=== PATIENT | male | born 1945 | race Caucasian/White ===

== ENCOUNTER 2018-09-15 10:36 | Inpatient (IN) ==
[2018-09-15] MEDS ORDERED: MethylPREDNISolone Sod Succinate Inj 40 MG/ML Vial IV.PUSH ONE (10:47)
[2018-09-15 11:12] LABS: Baso # (Auto) 0.1 th/mm3 (0.0-0.2); Baso % (Auto) 0.9 % (0.0-2.0); Eos % (Auto) 0.4 % (0.0-4.0); Hematocrit 38.7 % (39.0-51.0); Hemoglobin 12.1 gm/dL (13.0-17.0); Lymph # (Auto) 0.8 th/mm3 (1.0-4.8); Mean Corpuscular HGB Conc 31.4 % (32.0-36.0); Mean Corpuscular Hemoglobin 28.6 pg (27.0-34.0); Mean Corpuscular Volume 91.2 fL (80.0-100.0); Mono # (Auto) 0.9 th/mm3 (0.0-0.9); Mono % (Auto) 8.1 % (0.0-8.0); Neut # (Auto) 9.4 th/mm3 (1.8-7.7); Neut % (Auto) 83.6 % (16.0-70.0); Platelet Count 199 th/mm3 (150-450); Red Blood Count 4.25 mil/mm3 (4.50-5.90); White Blood Count 11.2 th/mm3 (4.0-11.0)
[2018-09-15 11:28] LABS: Activated Partial Thrombo Time 27.5 sec (23.4-31.7); INR 1.2 Ratio
[2018-09-15 11:31] LABS: Prothrombin Time 11.9 sec (9.8-11.6)
[2018-09-15 11:35] LABS: Alanine Aminotransferase 15 U/L (12-78); Albumin 3.2 g/dL (3.4-5.0); Alkaline Phosphatase 104 U/L (45-117); Anion Gap 4 meq/L (5-15); Blood Urea Nitrogen 13 mg/dL (7-18); Calcium 8.8 mg/dL (8.5-10.1); Carbon Dioxide 25.6 meq/L (21.0-32.0); Chloride 111 meq/L (98-107); Glomerular Filtration Rate 61 mL/min (>89); Magnesium 1.9 mg/dL (1.5-2.5); Sodium 141 meq/L (136-145); Total Protein 7.6 g/dL (6.4-8.2); Troponin I 0.03 ng/mL (0.02-0.05)
[2018-09-15 11:38] LABS: Glucose,Random 45 mg/dL (74-106)
[2018-09-15] MEDS ORDERED: Etomidate Inj 40 MG/20 ML Vial IV.PUSH ONE (11:39)
--- NOTE | 2018-09-15 11:40 | XR ---
EXAM DATE: 09/15/2018 11:29 AM EST AGE/SEX: 73 years / Male INDICATIONS: Dyspnea CLINICAL DATA: This is the patient's initial encounter. Patient reports that signs and symptoms have been present for 1 day and indicates a pain score of Nonresponsive. MEDICAL/SURGICAL HISTORY: Cardiovascular disease. CABG. COMPARISON: No prior exams available for comparison. FINDINGS: 2 portable AP views of the chest demonstrate cardiac silhouette size at the upper limits for normal w ith calcification of the aorta. Patient is post median sternotomy. There is patchy airspace consolida tion in the right midlung zone and the left mid to lower lung zone. No pleural effusion or pneumothor ax is identified. The bones and soft tissues demonstrate no acute abnormality. CONCLUSION: 1. There is nonspecific bilateral patchy airspace consolidation of uncertain chronicity. 2. Cardiac silhouette size is at the upper limits for normal. Electronically signed by: Haider Wood MD 09/15/2018 11:39 AM EST
[2018-09-15] MEDS ORDERED: Sod Chloride 0.9% Inj 1,000 ML IV.SIG SCH ×2 (11:45)
[2018-09-15] MEDS ORDERED: Sod Chloride 0.9% Inj 700 ML IV.SIG SCH (11:45)
[2018-09-15] MEDS: Propofol 1000 mg/100 ml Inj 1,000 MG/100 ML BOTTLE IV.CONT PRN ×3 (12:04→20:12)
[2018-09-15 12:20] LABS: ABG PCO2 38 mmHg (38-42); ABG PO2 69 mmHg (61-120)
--- NOTE | 2018-09-15 12:44 | ED ---
HPI General Chief Complaint: Shortness of Breath/Dyspnea Stated Complaint: Respitory/Pysch EVAL/DBPD Time Seen by Provider: 09/15/18 10:47 Source: patient Mode of arrival: ambulatory Limitations: no limitations History of Present Illness 73 yo M c/o shortness of breath. pt arrives by EMS after family called from home. hx limited 2/2 non-compliance with hpi and PE. evidently PD was called and PD placed pt under BA due to unwillingness to proceed w EMS transfer to ED. here pt states, "I can't breathe." O2 sats in the 60s per EMS en route. With NRB O2 improved to high 90s. Related Data Home Medications Medication Instructions Recorded Confirmed alfuzosin 10 mg PO DAILY 09/15/18 09/15/18 aspirin 325 mg PO DAILY 09/15/18 09/15/18 atorvastatin [Lipitor] 40 mg PO HS 09/15/18 09/15/18 benzonatate [Tessalon Perles] 200 mg PO Q8HR PRN 09/15/18 09/15/18 carvedilol [Coreg] 12.5 mg PO BID 09/15/18 09/15/18 cholecalciferol (vitamin D3) 2,000 unit PO DAILY 09/15/18 09/15/18 [Vitamin D3] insulin NPH and regular human 1 sliding scale dose SUBCUT UD 09/15/18 09/15/18 [Novolin 70/30 U-100 Insulin] isosorbide mononitrate 30 mg PO DAILY 09/15/18 09/15/18 lisinopril 2.5 mg PO DAILY 09/15/18 09/15/18 Allergies Allergy/AdvReac Type Severity Reaction Status Date / Time No Known Allergies Allergy Uncoded 01/28/15 04:04 Review of Systems ROS Unobtainable ROS Unobtainable: unobtainable due to mental condition and unobtainable due to mental status PMFSH Medical History Medical History Chest pain (Acute) Diabetes (Acute) Myocardial infarction (Acute) Surgical History Surgical History Hx of cardiac cath (Acute) S/P CABG x 2 (Acute) Social History Social History Substance History: Unable to Obtain Smoking Status: Unknown if ever smoked How Often Do You Have a Drink Containing Alcohol: Unable to Obtain Recent Travel in [facility] within the Last 8 Weeks: No Recent Out of Country Travel within the Last 8 Weeks: No Immunization History Tetanus Immunization: Unsure Exam Narrative Exam Narrative: GENERAL: 73 yo M severe distress 2/2 dyspnea SKIN: Focused skin assessment warm/dry. HEAD: Atraumatic. Normocephalic. EYES: Pupils equal and round. No scleral icterus. No injection or drainage. ENT: No nasal bleeding or discharge. Mucous membranes pink and moist. NECK: Trachea midline. No JVD. CARDIOVASCULAR: Regular rate and rhythm. No murmur appreciated. RESPIRATORY: Course breath sounds bilaterally. Rate approx 30 bpm. Speaks two to three word sentences. GASTROINTESTINAL: Abdomen soft, non-tender, nondistended. Hepatic and splenic margins not palpable. MUSCULOSKELETAL: Minimal edema bilateral lower extremities. NEUROLOGICAL: No focal deficits. Agitated. PSYCHIATRIC: Agitated. Unable to assess otherwise 2/2 agitation. Procedures Intubation Time Out Performed: No Sedative: etomidate Mg Given: 20 Paralytic: rocuronium Mg Given: 50 Laryngoscope: fiber optic video scope ET Tube Size: 8 ET Tube Uncuffed: No Tube Secured Depth (cm): 23 Tube Secured Location: lips Tube Placement Confirmation: visualized tube passing through cords, equal breath sounds bilaterally and no breath sounds over epigastrium Patient Tolerated Procedure: well Intubation Complications: none Course Initial Documented Vital Signs Pulse Rate 77 09/15/18 10:40 Respiratory Rate 37 H 09/15/18 10:40 Pulse Oximetry 93 L 09/15/18 10:40 Last Documented Vital Signs Temperature 99.0 F 09/15/18 13:31 Pulse Rate 75 09/15/18 13:31 Respiratory Rate 26 H 09/15/18 14:32 Blood Pressure 173/110 H 09/15/18 13:31 Pulse Oximetry 99 09/15/18 14:32 Critical Care Time Critical Care Time: Yes Total Critical Care Time: 40 Attestation: Aggregate critical care time was 40 minutes. Time to perform other separately billable procedures was not included in the critical care time. My time did not include minutes spent treating any other patients simultaneously or on activities that did not directly contribute to the patient's treatment. The services I provided to this patient were to treat and/or prevent clinically significant deterioration that could result in: Cardiopulmonary arrest, anoxic organ injury I provided critical care services requiring my management, as noted below: Chart data review, documentation time, medication orders and management, vital sign assessments/reviewing monitor data, ordering and reviewing lab tests, ordering and interpreting/reviewing x-rays and diagnostic studies, care of the patient and discussion of the patient with the admitting physicians. Medical Decision Making MDM Narrative Medical decision making narrative: BIPAP started upon arrival Increasing agitation and more frequent complaints of "I can't breath." ABG 7. BE -7 NRB tried with no improvement D50 given Pt intubated with O2 sats at 83 with 100% FIO2 improved to 94 after about 5 minutes. Xray shows pulmonary edema, 40mg IV Lasix ordered. 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 Medical Screen Exam Complete: Yes Emergency Medical Condition: Yes Lab Data Result diagrams: 09/15/18 10:50 09/15/18 10:50 Lab Results 09/15/18 09/15/18 09/15/18 Range/Units 10:50 10:50 10:50 WBC 11.2 H (4.0-11.0) th/mm3 RBC 4.25 L (4.50-5.90) mil/mm3 Hgb 12.1 L (13.0-17.0) gm/dL Hct 38.7 L (39.0-51.0) % MCV 91.2 (80.0-100.0) fL MCH 28.6 (27.0-34.0) pg MCHC 31.4 L (32.0-36.0) % RDW 19.0 H (11.6-17.2) % Plt Count 199 (150-450) th/mm3 MPV 9.0 (7.0-11.0) fL Neut % (Auto) 83.6 H (16.0-70.0) % Lymph % (Auto) 7.0 L (9.0-44.0) % [place] % (Auto) 8.1 H (0.0-8.0) % Eos % (Auto) 0.4 (0.0-4.0) % Baso % (Auto) 0.9 (0.0-2.0) % Neut # (Auto) 9.4 H (1.8-7.7) th/mm3 Lymph # (Auto) 0.8 L (1.0-4.8) th/mm3 [place] # (Auto) 0.9 (0.0-0.9) th/mm3 Eos # (Auto) 0.0 (0.0-0.4) th/mm3 Baso # (Auto) 0.1 (0.0-0.2) th/mm3 WBC Differential . Differential Comment Auto diff final PT 11.9 H (9.8-11.6) sec INR 1.2 Ratio APTT 27.5 (23.4-31.7) sec Puncture Site Patient Temperature O2 Saturation (90-100) % ABG pH (7.380-7.420) ABG pCO2 (38-42) mmHg ABG pO2 (61-120) mmHg ABG HCO3 (22-26) mmol/L ABG O2 Content (12.0-20.0) Vol % ABG Base Excess (-2-2) mmol/L ABG Methemoglobin (0-2) % Leoncio Test Hemoglobin (12.0-16.0) G/DL Carboxyhemoglobin (0-4) % O2 Delivery Device Vent Setting Inspired O2 % Critical Value Sodium 141 (136-145) meq/L Potassium (3.5-5.1) meq/L Chloride 111 H (98-107) meq/L Carbon Dioxide 25.6 (21.0-32.0) meq/L Anion Gap 4 L (5-15) meq/L BUN 13 (7-18) mg/dL Creatinine 1.18 (0.60-1.30) mg/dL Estimated GFR 61 L (>89) mL/min POC Glucose (68-110) mg/dl Random Glucose 45 L* (74-106) mg/dL Lactic Acid (0.4-2.0) mmol/L Calcium 8.8 (8.5-10.1) mg/dL Magnesium 1.9 (1.5-2.5) mg/dL Total Bilirubin 1.1 H (0.2-1.0) mg/dL AST (15-37) U/L ALT 15 (12-78) U/L Alkaline Phosphatase 104 (45-117) U/L Troponin I 0.03 (0.02-0.05) ng/mL B-Natriuretic Peptide (0-100) pg/mL Total Protein 7.6 (6.4-8.2) g/dL Albumin 3.2 L (3.4-5.0) g/dL 12/12/2909/15/18 09/15/18 Range/Units 10:50 10:51 12:26 WBC (4.0-11.0) th/mm3 RBC (4.50-5.90) mil/mm3 Hgb (13.0-17.0) gm/dL Hct (39.0-51.0) % MCV (80.0-100.0) fL MCH (27.0-34.0) pg MCHC (32.0-36.0) % RDW (11.6-17.2) % Plt Count (150-450) th/mm3 MPV (7.0-11.0) fL Neut % (Auto) (16.0-70.0) % Lymph % (Auto) (9.0-44.0) % [place] % (Auto) (0.0-8.0) % Eos % (Auto) (0.0-4.0) % Baso % (Auto) (0.0-2.0) % Neut # (Auto) (1.8-7.7) th/mm3 Lymph # (Auto) (1.0-4.8) th/mm3 [place] # (Auto) (0.0-0.9) th/mm3 Eos # (Auto) (0.0-0.4) th/mm3 Baso # (Auto) (0.0-0.2) th/mm3 WBC Differential Differential Comment PT (9.8-11.6) sec INR Ratio APTT (23.4-31.7) sec Puncture Site Right radial Patient Temperature 98.6 O2 Saturation 89 L* (90-100) % ABG pH 7.31 L (7.380-7.420) ABG pCO2 38 (38-42) mmHg ABG pO2 69 (61-120) mmHg ABG HCO3 18 L (22-26) mmol/L ABG O2 Content 15.1 (12.0-20.0) Vol % ABG Base Excess -7.0 L (-2-2) mmol/L ABG Methemoglobin 0.4 (0-2) % Leoncio Test Present Hemoglobin 12.1 (12.0-16.0) G/DL Carboxyhemoglobin 1.1 (0-4) % O2 Delivery Device Bipap Vent Setting Ipap 12/epap 8 Inspired O2 100 % Critical Value Yes Sodium (136-145) meq/L Potassium (3.5-5.1) meq/L Chloride (98-107) meq/L Carbon Dioxide (21.0-32.0) meq/L Anion Gap (5-15) meq/L BUN (7-18) mg/dL Creatinine (0.60-1.30) mg/dL Estimated GFR (>89) mL/min POC Glucose (68-110) mg/dl Random Glucose (74-106) mg/dL Lactic Acid 3.4 H (0.4-2.0) mmol/L Calcium (8.5-10.1) mg/dL Magnesium (1.5-2.5) mg/dL Total Bilirubin (0.2-1.0) mg/dL AST (15-37) U/L ALT (12-78) U/L Alkaline Phosphatase (45-117) U/L Troponin I (0.02-0.05) ng/mL B-Natriuretic Peptide 1490 H (0-100) pg/mL Total Protein (6.4-8.2) g/dL Albumin (3.4-5.0) g/dL 09/15/18 09/15/18 09/15/18 Range/Units 12:40 13:29 14:50 WBC (4.0-11.0) th/mm3 RBC (4.50-5.90) mil/mm3 Hgb (13.0-17.0) gm/dL Hct (39.0-51.0) % MCV (80.0-100.0) fL MCH (27.0-34.0) pg MCHC (32.0-36.0) % RDW (11.6-17.2) % Plt Count (150-450) th/mm3 MPV (7.0-11.0) fL Neut % (Auto) (16.0-70.0) % Lymph % (Auto) (9.0-44.0) % [place] % (Auto) (0.0-8.0) % Eos % (Auto) (0.0-4.0) % Baso % (Auto) (0.0-2.0) % Neut # (Auto) (1.8-7.7) th/mm3 Lymph # (Auto) (1.0-4.8) th/mm3 [place] # (Auto) (0.0-0.9) th/mm3 Eos # (Auto) (0.0-0.4) th/mm3 Baso # (Auto) (0.0-0.2) th/mm3 WBC Differential Differential Comment PT (9.8-11.6) sec INR Ratio APTT (23.4-31.7) sec Puncture Site Right radial Patient Temperature 98.6 O2 Saturation 93 (90-100) % ABG pH 7.29 L* (7.380-7.420) ABG pCO2 48 H (38-42) mmHg ABG pO2 91 (61-120) mmHg ABG HCO3 22 (22-26) mmol/L ABG O2 Content 15.5 (12.0-20.0) Vol % ABG Base Excess -3.6 L (-2-2) mmol/L ABG Methemoglobin 0.4 (0-2) % Leoncio Test Present Hemoglobin 11.8 L (12.0-16.0) G/DL Carboxyhemoglobin 1.2 (0-4) % O2 Delivery Device Ventilator Vent Setting Inspired O2 100 % Critical Value Yes Sodium (136-145) meq/L Potassium (3.5-5.1) meq/L Chloride (98-107) meq/L Carbon Dioxide (21.0-32.0) meq/L Anion Gap (5-15) meq/L BUN (7-18) mg/dL Creatinine (0.60-1.30) mg/dL Estimated GFR (>89) mL/min POC Glucose 95 174 H (68-110) mg/dl Random Glucose (74-106) mg/dL Lactic Acid (0.4-2.0) mmol/L Calcium (8.5-10.1) mg/dL Magnesium (1.5-2.5) mg/dL Total Bilirubin (0.2-1.0) mg/dL AST (15-37) U/L ALT (12-78) U/L Alkaline Phosphatase (45-117) U/L Troponin I (0.02-0.05) ng/mL B-Natriuretic Peptide (0-100) pg/mL Total Protein (6.4-8.2) g/dL Albumin (3.4-5.0) g/dL Imaging Data Radiologist's impression: Chest X-Ray 12/03/18 10:47 CONCLUSION: 1. There is nonspecific bilateral patchy airspace consolidation of uncertain chronicity. 2. Cardiac silhouette size is at the upper limits for normal. Discharge Plan Discharge Disposition Patient Disposition: ED Admit(ED Internal Use Only) Discharge Order Discharge Orders: ED Use Only Admit Order (Routine); Ordered 09/15/18 Ordered By: Karl Lozoya Physicians Team ED Provider: Karl Lozoya Primary Care Provider: [facility]ician 's Attending Provider: Van Leslie Status ED Status: Admitted Patient
[2018-09-15 12:58] LABS: ABG Base Excess -3.6 mmol/L (-2-2); ABG PCO2 48 mmHg (38-42); ABG PO2 91 mmHg (61-120)
--- NOTE | 2018-09-15 15:04 | ECG ---
Date Performed: 09/15/2018 Time Performed: 10:42:08 PTAGE: 73 years EKG: Severe artifact making this EKG unusable. I would repeat it. DOCTOR: Antwan Bunch Interpretating Date/Time 09/15/2018 15:02:10
--- NOTE | 2018-09-15 17:57 | P.HPCC ---
History of Present Illness Service: Critical care medicine Primary Care Physician: Physician 's [facility] Chief Complaint: shortness of breath History of Present Illness: 73yM with history of CHF s/p CABG for CAD presents with worsening shortness of breath. decompensated in the ER requiring intubation. BNP > 1400. lactate elevated. sbp elevated in the 190s. cxr suggestive of pulmonary edema. no history of sputum production, fever, chills. no information available from the patient due to his condition. ROS unobtainable. per his , he sees Dr. Flannery for "a leaky valve" and "heart failure." The patient has no records in our hospital system. I have ordered 2d echo and have asked Dr. Flannery's team to evaluate him if indeed he sees the patient as an outpatient. Inpatient Certification: I certify that the inpatient services were ordered in accordance with Medicare regulations governing the order. This includes certification that hospital inpatient services are reasonable and necessary and in the case of services not specified as inpatient-only under 42 CFR 419.22(n), that they are appropriately provided as inpatient services in accordance to with the 2-midnight benchmark under 43 CFR 412.3(e) Review of Systems unobtainable due to endotracheal tube PMFSH - History History Provided By: Medical Record - Medical / Surgical Hx Neg / Unobtainable Medical Problems Denied: Unable to Obtain Surgical History: Unable to Obtain - Medical History Medical History: Medical History (Last Reviewed 09/15/18 @ 21:31 by Van Leslie MD) Chest pain Diabetes Myocardial infarction - Surgical History Surgical History: Surgical History (Last Reviewed 09/15/18 @ 21:31 by Van Leslie MD) Hx of cardiac cath S/P CABG x 2 - Family History Family History: Family History (Last Updated 09/15/18 @ 21:31 by Van Leslie MD) Other Family history non-contributory - Social History I have reviewed the patient's Social History: Yes - Tobacco History Smoking Status: Unknown if ever smoked - Alcohol History How Often Do You Have a Drink Containing Alcohol: Unable to Obtain - Substance Use History Substance History: Unable to Obtain - Travel History Recent Travel in the [place] Within the Last 8 Weeks: No Recent Travel Out of the Country Within the Last 8 Weeks: No - Immunization History Tetanus Immunization: Unsure Medications and Allergies Active Medications: Active Medications Sodium Chloride (Ns Inj) 1,000 mls @ 0 mls/hr IV.SIG .Q0M RON Last Infusion: 09/15/18 14:33 Dose: Infused Sodium Chloride (Ns Inj) 1,000 mls @ 0 mls/hr IV.SIG .Q0M RON Last Infusion: 09/15/18 14:32 Dose: Infused Sodium Chloride (Ns Inj) 700 mls @ 0 mls/hr IV.SIG .Q0M RON Propofol (Diprivan 1000 Mg/100 Ml Inj) 1,000 mg in 100 mls @ 2.449 mls/hr IV.CONT TITRATE PRN; Protocol PRN Reason: Per Protocol Last Admin: 09/15/18 16:24 Dose: 50 mcg/kg/min, 24.49 mls/hr Sodium Chloride (Ns Flush) 2 ml IV.FLUSH PRN PRN PRN Reason: FLUSH AFTER USING IV ACCESS Allergies Allergy/AdvReac Type Severity Reaction Status Date / Time No Known Allergies Allergy Uncoded 01/28/15 04:04 Home Medications Medication Instructions Recorded Confirmed Type alfuzosin 10 mg PO DAILY 09/15/18 09/15/18 History aspirin 325 mg PO DAILY 09/15/18 09/15/18 History atorvastatin [Lipitor] 40 mg PO HS 09/15/18 09/15/18 History benzonatate [Tessalon Perles] 200 mg PO Q8HR PRN 09/15/18 09/15/18 History carvedilol [Coreg] 12.5 mg PO BID 09/15/18 09/15/18 History cholecalciferol (vitamin D3) 2,000 unit PO DAILY 09/15/18 09/15/18 History [Vitamin D3] insulin NPH and regular human 1 sliding scale dose SUBCUT UD 09/15/18 09/15/18 History [Novolin 70/30 U-100 Insulin] isosorbide mononitrate 30 mg PO DAILY 09/15/18 09/15/18 History lisinopril 2.5 mg PO DAILY 09/15/18 09/15/18 History Results - Labs CBC & Chem 7: 09/15/18 10:50 09/15/18 20:09 Labs: Short CBC 09/15/18 Range/Units 10:50 WBC 11.2 H (4.0-11.0) th/mm3 Hgb 12.1 L (13.0-17.0) gm/dL Hct 38.7 L (39.0-51.0) % Plt Count 199 (150-450) th/mm3 BMP 09/15/18 10:50 Sodium 141 Potassium Chloride 111 H Carbon Dioxide 25.6 BUN 13 Creatinine 1.18 Calcium 8.8 Cardiac Enzymes 09/15/18 Range/Units 10:50 Troponin I 0.03 (0.02-0.05) ng/mL Liver Function 09/15/18 Range/Units 10:50 Total Bilirubin 1.1 H (0.2-1.0) mg/dL AST (15-37) U/L ALT 15 (12-78) U/L Alkaline Phosphatase 104 (45-117) U/L Albumin 3.2 L (3.4-5.0) g/dL - Imaging Impressions Chest X-Ray 09/15/18 10:47 CONCLUSION: 1. There is nonspecific bilateral patchy airspace consolidation of uncertain chronicity. 2. Cardiac silhouette size is at the upper limits for normal. Exam Vital signs: Vital Signs 09/15/18 10:40 09/15/18 10:45 09/15/18 11:15 Temperature Pulse Rate 77 89 Respiratory Rate 37 H 40 H Blood Pressure 133/89 Pulse Oximetry 93 L 90 L 94 L 09/15/18 11:25 09/15/18 11:26 09/15/18 11:27 Temperature Pulse Rate 89 Respiratory Rate Blood Pressure Pulse Oximetry 90 L 90 L 09/15/18 11:50 09/15/18 13:00 09/15/18 13:31 Temperature 37.4 C 37.2 C Pulse Rate 61 75 Respiratory Rate 16 36 H 35 H Blood Pressure 107/83 173/110 H Pulse Oximetry 96 100 98 09/15/18 14:32 09/15/18 16:00 09/15/18 17:13 Temperature 37.1 C Pulse Rate 58 L Respiratory Rate 26 H 22 18 Blood Pressure 129/67 Pulse Oximetry 99 100 98 Intake & Output 09/14/18 09/15/18 09/15/18 18:59 06:59 18:59 Intake Total 2099 Balance 2099 Weight 80 kg Intake: IV 2099 Diprivan 1000 mg/100 ml Inj 1, 100 / 100 000 mg In 100 ml @ 5 MCG/KG/MIN 2.449 mls/hr IV.CONT TITRATE PRN Rx#:[id number] NS Inj 1,000 ML @ Wide Open IV. 1999 SIG .Q0M RON Rx#:[id number] Other: Weight On Admission 80 kg Narrative: gen: elderly male, lying in bed, intubated, sedated, critically ill. heent: nc. at. perrl. mmm. neck: +JVD. trachea midline. chest: intubated. PRVC. fio2 40%. peep 5. equal chest rise. cv: bradycardic rate with frequent pvc's. regular rhythm. abd: soft, nontender, nondistended. no guarding. extr: 1+ edema. distal pulses 2+. neuro: RASS -3. recently intubated, sedated. moves all extremities. withdraws to pain. does not follow commands. Caprini VTE Risk Assessment Caprini VTE Risk Assessment: Moderate/High Risk (score >= 2) Caprini Risk Assessment Model: Point Value = 1 Point Value = 2 Point Value = 3 Point Value = 5 Age 41-60 Minor surgery BMI > 25 kg/m2 Swollen legs Varicose veins or History of unexplained or recurrent spontaneous Oral contraceptives or hormone replacement Sepsis (< 1 month) Serious lung disease, including pneumonia (< 1 month) Abnormal pulmonary function Acute myocardial infarction Congestive heart failure (< 1 month) History of inflammatory bowel disease Medical patient at bed rest Age 61-74 Arthroscopic surgery Major open surgery (> 45 min) Laparoscopic surgery (> 45 min) Malignancy Confined to bed (> 72 hours) Immobilizing plaster cast Central venous access Age >= 75 History of VTE Family history of VTE Factor V Leiden Prothrombin 19197M Lupus anticoagulant Anticardiolipin antibodies Elevated serum homocysteine Heparin-induced thrombocytopenia Other congenital or acquired thrombophilia Stroke (< 1 month) Elective arthroplasty Hip, pelvis, or leg fracture Acute spinal cord injury (< 1 month) Prophylaxis Regimen: Total Risk Factor Score Risk Level Prophylaxis Regimen 0-1 Low Early ambulation 2 Moderate Order ONE of the following: *Sequential Compression Device (SCD) *Heparin 5000 units SQ BID 3-4 Higher Order ONE of the following medications: *Heparin 5000 units SQ TID *Enoxaparin/Lovenox 40 mg SQ daily (WT < 150 kg, CrCl > 30 mL/min) *Enoxaparin/Lovenox 30 mg SQ daily (WT < 150 kg, CrCl > 10-29 mL/min) *Enoxaparin/Lovenox 30 mg SQ BID (WT < 150 kg, CrCl > 30 mL/min) AND/OR *Sequential Compression Device (SCD) 5 or more Highest Order ONE of the following medications: *Heparin 5000 units SQ TID (Preferred with Epidurals) *Enoxaparin/Lovenox 40 mg SQ daily (WT < 150 kg, CrCl > 30 mL/min) *Enoxaparin/Lovenox 30 mg SQ daily (WT < 150 kg, CrCl > 10-29 mL/min) *Enoxaparin/Lovenox 30 mg SQ BID (WT < 150 kg, CrCl > 30 mL/min) AND *Sequential Compression Device (SCD) Assessment and Plan - Assessment and Plan Plan: Assessment: 73yM with acute hypoxic and hypercarbic respiratory failure most likely secondary to acute severe congestive heart failure exacerbation of unknown etiology. admit to icu. forced diuresis. critically ill. Neuro: Acute metabolic encephalopathy - frequent neuro checks - propofol, fentanyl for goal RASS -2 - daily sedation vacations Resp Acute hypoxic and hypercarbic respiratory failure Severe acute pulmonary edema - vent bundle, hob elevated, nebs - no sbt today - forced diuresis - wean fio2 for goal spo2 > 90% CV Severe acute congestive heart failure exacerbation- unknown type - 2d echo - says patient sees Dr. Flannery, will consult him to follow - forced diuresis - trend bmp - trend trop: unlikely to be acs- no symptoms. will not heparinize. Renal: Acute kidney injury BPH Urinary obstruction - bedside RN unable to place bullard - I placed bullard (see separate procedure note for details) - keep bullard - q1h uop checks - forced diuresis - am bmp FEN/GI Acute intravascular volume overload lactic acidosis - lactate secondary to cardiogenic shock from CHF - trend lactates - NPO - OG tube to LIWS - forced diuresis - ICU electrolyte protocol - daily bmp, mg, phos Heme/ID: no infectious etiology suspected at this time daily cbc Endo: Hypoglycemia frequent glucose checks d50w as needed Prophylaxis: scds pepcid sqh Lines: piv bullard dispo: admit to ICU Critical care time: 44 minutes, exclusive of separately billable procedures. H&P: Quality - VTE Deep Vein Thrombosis/Pulmonary Embolism Present on Admission: No
[2018-09-15 18:11] LABS: Bilirubin,Urine Negative (Negative); Clarity,Urine Cloudy (Clear); Color,Urine Amber (Yellw/Straw); Glucose,Urine (UA) Negative (Negative); Hyaline Casts,Urine 16 /lpf (0-3); Leukocyte Esterase,Urine Negative (Negative); Mucus,Urine Many /lpf (Occasional); Nitrite,Urine Negative (Negative); Specific Gravity,Urine 1.035 (1.002-1.035)
[2018-09-15] MEDS ORDERED: Potassium Chloride 25 MEQ Effervescent Tablet PO PRN (18:11)
[2018-09-15] MEDS ORDERED: Magnesium Sulfate Inj 4 GM in Sodium Chlor 0.9% Inj 92 ML IV.SIG PRN (18:11)
[2018-09-15] MEDS ORDERED: Bisacodyl 10 MG Supp RECTAL PRN (18:11)
[2018-09-15] MEDS ORDERED: Dextrose 50% in Water 50 ML Vial IV.PUSH PRN (18:11)
[2018-09-15] MEDS ORDERED: Potassium Phosphate 500 MG Soluble Tablet PO PRN ×2 (18:11)
[2018-09-15] MEDS ORDERED: Magnesium Oxide 400 MG Tablet PO PRN (18:11)
[2018-09-15] MEDS ORDERED: Potassium Phosphate Inj 30 MMOL in Sodium Chlor 0.9% Inj 250 ML IV.SIG PRN (18:11)
[2018-09-15] MEDS ORDERED: HYDROmorphone PF Inj 1 MG/ML Ampul IV.PUSH PRN (18:11)
[2018-09-15] MEDS ORDERED: Acetaminophen 325 MG Tablet PO PRN (18:11)
[2018-09-15] MEDS ORDERED: Potassium Chlor 20 mEq Premix 20 MEQ/100 ML PIGGYBACK IV.SIG PRN (18:11)
[2018-09-15] MEDS ORDERED: Labetalol HCl Inj 100 MG/20 ML Vial IV.PUSH PRN (18:11)
[2018-09-15] MEDS ORDERED: Sodium Phosphate Inj 30 MMOL in Sodium Chlor 0.9% Inj 250 ML IV.SIG PRN (18:11)
[2018-09-15] MEDS ORDERED: Potassium Chlor 40 mEq Premix 40 MEQ/100 ML PIGGYBACK IV.SIG PRN ×2 (18:11)
[2018-09-15] MEDS ORDERED: hydrALAZINE HCl Inj 20 MG/ML Vial IV.PUSH PRN (18:11)
[2018-09-15] MEDS ORDERED: Magnesium Sulfate Inj 2 GM in Sodium Chlor 0.9% Inj 96 ML IV.SIG PRN (18:11)
[2018-09-15] MEDS: Chlorhexidine 0.12% Oral Kit 15 ML UDC OROPHARYNG SCH (20:00)
[2018-09-15] MEDS: Senna/Docusate Sodium 8.6/50 MG Tablet PO SCH (20:23)
[2018-09-15] MEDS: Famotidine PF Inj 20 MG/2 ML Vial IV.PUSH SCH (20:23)
[2018-09-15] MEDS: Polyethylene Glycol 3350 17 GM Packet PO SCH (20:23)
[2018-09-15] MEDS: fentaNYL 10 mcg/mL Premix Drip 2,500 MCG/250 ML BAG IV.SIG PRN (20:24)
--- NOTE | 2018-09-15 21:17 | CT ---
EXAM DATE: 09/15/2018 9:10 PM EST AGE/SEX: 73 years / Male INDICATIONS: Shortness of breath. CLINICAL DATA: This is the patient's initial encounter. Patient reports that signs and symptoms have been present for 1 day and indicates a pain score of Nonresponsive. MEDICAL/SURGICAL HISTORY: Diabetes. Myocardial infarction. CABG. Cardiac cath. RADIATION DOSE: 23.12 CTDI (mGy) COMPARISON: No prior exams available for comparison. TECHNIQUE: Volumetric scanning was performed using a multi-row detector CT scanner during bolus infu sacha of 75 ml Omnipaque 350 (iohexol) nonionic water-soluble contrast as a single exam dose. The guadalupe a was post processed with a variety of visualization algorithms including full volume maximum intensi ty projection and sliding thin slab reformation. Using automated exposure control and adjustment of the mA and/or kV according to patient size, radiation dose was kept as low as reasonably achievable t o obtain optimal diagnostic quality images. DICOM format image data is available electronically for review and comparison. FINDINGS: There is no pulmonary embolus. Moderate to large right and small left pleural effusions are present. There is dense pneumonic infilt rate in the left lower lobe. Patchy infiltrate seen of the left upper lobe and of the right lung. No pneumothorax. Mild left ventricular and atrial enlargement. Patient has had previous median sternotomy. CONCLUSION: 1. No pulmonary embolus. 2. Extensive bilateral pneumonia, densest in the left lower lobe. 3. Moderate to large right and small left pleural effusions. 4. Left ventricular and atrial enlargement. Previous coronary artery bypass graft operation. Electronically signed by: Haider Sierra MD 09/15/2018 9:16 PM EST
--- NOTE | 2018-09-15 21:38 | P.PCN ---
Date of procedure: 09/15/18 Procedure: Complicated Urinary Catheter Placement Diagnosis: BPH Indications: Multiple prior attempts of Belcher placement by bedside nurse. Need for nightly hour urine outputs in the setting of severe congestive heart failure exacerbation. Successful placement: 18 Mauritian coud Belcher catheter. Description of the Procedure: Multiple prior attempts at Belcher catheter placement by Bedside RN. In a sterile fashion I placed 18 Mauritian coud catheter. My attempt was atraumatic. Dark yellow urine was obtained. No immediate complications noted. I personally performed the procedure.
[2018-09-15] MEDS: Heparin - SQ 10,000 UNITS/ML Vial SQ SCH (21:41)
[2018-09-15] MEDS ORDERED: Piperacil/Tazo 4.5 GM Premix 4.5 GM/100 ML BAG IV.SIG SCH (22:00)
[2018-09-15] MEDS ORDERED: Vancomycin Inj 1,000 MG in Sodium Chlor 0.9% Inj 250 ML IV.SIG ONE (22:04)
[2018-09-15] MEDS: Oral Hygiene Kit OROPHARYNG SCH (23:18)
[2018-09-15] MEDS: Piperacil/Tazo 4.5 GM Premix 4.5 GM/100 ML BAG IV.SIG SCH (23:18)
[2018-09-16 00:34] LABS: Calcium 8.5 mg/dL (8.5-10.1); Carbon Dioxide 22.4 meq/L (21.0-32.0); Magnesium 1.6 mg/dL (1.5-2.5); Phosphorus 4.6 mg/dL (2.5-4.9); Potassium 3.6 meq/L (3.5-5.1)
[2018-09-16 00:44] LABS: Troponin I 1.1 ng/mL (0.02-0.05)
[2018-09-16] MEDS: Oral Hygiene Kit OROPHARYNG SCH ×3 (03:35→15:27)
[2018-09-16] MEDS: Chlorhexidine Gluconate 2% 1 Pack (2 Cloths) TOPICAL SCH (03:35)
[2018-09-16] MEDS: Propofol 1000 mg/100 ml Inj 1,000 MG/100 ML BOTTLE IV.CONT PRN ×2 (03:35→15:38)
[2018-09-16] MEDS ORDERED: Chlorhexidine Gluconate 2% 1 Pack (2 Cloths) TOPICAL PRN (04:00)
--- NOTE | 2018-09-16 04:12 | XR ---
EXAM DATE: 09/16/2018 4:02 AM EST AGE/SEX: 73 years / Male INDICATIONS: Short of breath. CLINICAL DATA: This is the patient's subsequent encounter. Patient reports that signs and symptoms h ave been present for 2 days and indicates a pain score of 0/10. MEDICAL/SURGICAL HISTORY: Cardiovascular disease. CABG. COMPARISON: [facility] – [place], CHEST 1V SINGLE AP, 09/15/2018. . FINDINGS: A single AP view of the chest demonstrates no interval change. Diffuse bilateral pulmonary infiltrate s remain. Cardiomegaly noted. 2. Endotracheal tube 4 cm from the tiago. Nasogastric tube noted. Median sternotomy wires. CONCLUSION: Unchanged diffuse bilateral pulmonary infiltrates. Electronically signed by: Angel Beck MD 09/16/2018 4:11 AM EST
[2018-09-16 05:20] LABS: ABG Base Excess -1.2 mmol/L (-2-2); ABG PCO2 36 mmHg (38-42); ABG PO2 92 mmHG (61-120)
[2018-09-16] MEDS: Heparin - SQ 10,000 UNITS/ML Vial SQ SCH ×3 (05:20→21:21)
[2018-09-16] MEDS: Piperacil/Tazo 4.5 GM Premix 4.5 GM/100 ML BAG IV.SIG SCH ×4 (05:20→23:55)
[2018-09-16 07:25] LABS: Baso % (Auto) 0.2 % (0.0-2.0); Hematocrit 36.3 % (39.0-51.0); Hemoglobin 11.8 gm/dL (13.0-17.0); Lymph # (Auto) 0.3 th/mm3 (1.0-4.8); Lymph % (Auto) 3.5 % (9.0-44.0); Mean Corpuscular HGB Conc 32.5 % (32.0-36.0); Mean Corpuscular Volume 89.2 fL (80.0-100.0); Mean Platelet Volume 8.7 fL (7.0-11.0); Mono # (Auto) 0.5 th/mm3 (0.0-0.9); Mono % (Auto) 4.8 % (0.0-8.0); Neut # (Auto) 8.6 th/mm3 (1.8-7.7); Neut % (Auto) 91.5 % (16.0-70.0); Platelet Count 133 th/mm3 (150-450); Red Blood Count 4.07 mil/mm3 (4.50-5.90); Red Cell Distribution Width 18.3 % (11.6-17.2); White Blood Count 9.4 th/mm3 (4.0-11.0)
[2018-09-16 07:29] LABS: INR 1.4 Ratio; Prothrombin Time 13.8 sec (9.8-11.6)
[2018-09-16] MEDS: Chlorhexidine 0.12% Oral Kit 15 ML UDC OROPHARYNG SCH ×2 (08:16→21:17)
[2018-09-16] MEDS: Senna/Docusate Sodium 8.6/50 MG Tablet PO SCH ×2 (08:17→21:21)
[2018-09-16] MEDS: Famotidine PF Inj 20 MG/2 ML Vial IV.PUSH SCH ×2 (08:17→21:20)
[2018-09-16] MEDS: Polyethylene Glycol 3350 17 GM Packet PO SCH ×2 (08:17→21:20)
[2018-09-16] MEDS: Furosemide Inj 100 MG in Sodium Chlor 0.9% Inj 90 ML IV.CONT SCH (13:19)
--- NOTE | 2018-09-16 17:26 | P.PNCC ---
Subjective Subjective Remarks/Hospital Course: Hospital Course: 73yM with history of CHF s/p CABG for CAD presents with worsening shortness of breath. decompensated in the ER requiring intubation. BNP > 1400. lactate elevated. sbp elevated in the 190s. cxr suggestive of pulmonary edema. no history of sputum production, fever, chills. no information available from the patient due to his condition. ROS unobtainable. per his , he sees Dr. Flannery for "a leaky valve" and "heart failure." The patient has no records in our hospital system. I have ordered 2d echo and have asked Dr. Flannery's team to evaluate him if indeed he sees the patient as an outpatient. Subjective: 09/16: remains intubated. BNP higher despite forced diuresis. starting lasix drip. echo pending. per , it is not the same Darrinr from [facility], but a cardiology group near [place] who sees him, so we will cancel the cardiology consult for Dr. Flannery. unable to wean from mechanical ventilation due to worsening pulmonary edema on cxr and rising BNP despite attempts at diuresis. remains critically ill. ROS unobtainable. Objective Vital Signs / I&O: Vital Signs 09/15/18 17:30 09/15/18 18:00 09/15/18 18:30 Temperature Pulse Rate 64 66 65 Respiratory Rate 21 23 20 Blood Pressure 167/80 H 169/78 H 161/72 H Pulse Oximetry 98 98 98 09/15/18 19:00 09/15/18 19:30 09/15/18 20:00 Temperature 37.4 C Pulse Rate 65 62 57 L Respiratory Rate 22 20 23 Blood Pressure 163/75 H 150/69 H Pulse Oximetry 98 98 98 09/15/18 20:01 09/15/18 20:15 09/15/18 20:30 Temperature Pulse Rate 57 L 56 L Respiratory Rate 23 18 23 Blood Pressure 141/63 H 132/61 Pulse Oximetry 98 98 98 09/15/18 20:45 09/15/18 21:00 09/15/18 21:14 Temperature Pulse Rate 68 72 Respiratory Rate 36 H 36 H Blood Pressure 171/70 H Pulse Oximetry 100 98 94 L 09/15/18 21:15 09/15/18 21:25 09/15/18 21:30 Temperature Pulse Rate 74 67 64 Respiratory Rate 30 H 17 16 Blood Pressure 145/65 H 154/70 H Pulse Oximetry 98 97 96 09/15/18 22:00 09/15/18 23:40 09/16/18 00:00 Temperature 37.2 C Pulse Rate 56 L 53 L 55 L Respiratory Rate 16 16 16 Blood Pressure 121/60 134/62 Pulse Oximetry 96 97 95 09/16/18 03:31 09/16/18 04:00 09/16/18 07:25 Temperature 37.2 C Pulse Rate 59 L 96 H 52 L Respiratory Rate 17 16 16 Blood Pressure 157/80 H Pulse Oximetry 95 96 09/16/18 07:48 09/16/18 08:00 09/16/18 09:00 Temperature 36.6 C Pulse Rate 54 L 52 L Respiratory Rate 16 16 Blood Pressure 132/60 Pulse Oximetry 97 95 09/16/18 11:13 09/16/18 12:00 09/16/18 14:15 Temperature 36.7 C Pulse Rate 92 H 52 L 53 L Respiratory Rate 16 16 16 Blood Pressure 106/55 L Pulse Oximetry 96 95 09/16/18 15:15 09/16/18 16:00 Temperature 36.9 C Pulse Rate 51 L Respiratory Rate 16 16 Blood Pressure 111/55 L Pulse Oximetry 98 98 Intake & Output 09/15/18 09/16/18 09/16/18 18:59 06:59 18:59 Intake Total 2099 / 2100 650 / 650 300 / 300 Output Total 75 / 75 2145 / 2145 Balance 2024 / 2024 -1495 / -1495 300 / 300 Weight 80 kg 78 kg Intake: IV 2099 / 2099 650 / 650 300 / 300 Diprivan 1000 mg/100 ml Inj 1, 100 / 100 200 / 200 100 / 100 000 mg In 100 ml @ 5 MCG/KG/MIN 2.449 mls/hr IV.CONT TITRATE PRN Rx#:[id number] Zosyn 4.5 GM Premix 4.5 gm In 200 / 200 200 / 200 100 ml @ 200 mls/hr IV.SIG Q6H RON Rx#:[id number] NS Inj 1,000 ML @ Wide Open IV. 1999 SIG .Q0M RON Rx#:[id number] Vancomycin Inj 1,000 MG In NS 250 / 250 Inj 250 ML @ 250 mls/hr IV.SIG ONCE ONE Rx#:[id number] Oral 0 / 0 Output: Urine Amount (Catheter) 2144 Indwelling Urethral Catheter 2144 Other: # Bowel Movements 0 0 Weight On Admission 80 kg Result Diagrams: 09/16/18 06:49 09/15/18 23:44 Objective Remarks: gen: elderly male, lying in bed, intubated, sedated, critically ill. heent: nc. at. perrl. mmm. neck: +JVD. trachea midline. chest: intubated. PRVC. fio2 40%. peep 8. equal chest rise. cv: bradycardic rate with frequent pvc's. regular rhythm. abd: soft, nontender, nondistended. no guarding. extr: 1+ edema. distal pulses 2+. neuro: RASS -2. weakly follows commands. moves all extremities. Assessment and Plan - Assessment and Plan Plan: Assessment: 73yM with acute hypoxic and hypercarbic respiratory failure secondary to acute severe congestive heart failure exacerbation of unknown etiology. increase forced diuresis with lasix drip. f/u echo. unsafe to wean mechanical ventilation with worsening pulmonary edema. critically ill. Neuro: Acute metabolic encephalopathy - frequent neuro checks - propofol, fentanyl for goal RASS -2 - daily sedation vacations Resp Acute hypoxic and hypercarbic respiratory failure Severe acute pulmonary edema- worsening - vent bundle, hob elevated, nebs - no sbt today - lasix drip - wean fio2 for goal spo2 > 90% CV Severe acute congestive heart failure exacerbation- unknown type, worsening Type II NSTEMI secondary to demand ischemia - 2d echo - increase forced diuresis. - trend bmp - trops downtrending. secondary to demand ischemia from CHF. will stop trending. no indication for anticoagulation at this time. Renal: Acute kidney injury BPH Urinary obstruction - bedside RN unable to place bullard - I placed bullard 09/16. must remain in place. - q1h uop checks - forced diuresis - am bmp - lasix drip - 2200 bmp, mg, phos. FEN/GI Acute intravascular volume overload lactic acidosis- resolved - lactate secondary to cardiogenic shock from CHF, resolving. - NPO - OG tube to LIWS - forced diuresis - ICU electrolyte protocol - daily bmp, mg, phos Heme/ID: no infectious etiology suspected at this time daily cbc Endo: Hypoglycemia frequent glucose checks d50w as needed Prophylaxis: scds pepcid sqh Lines: piv bullard dispo: remain in ICU. remains critically ill. Critical care time: 36 minutes, exclusive of separately billable procedures.
--- NOTE | 2018-09-16 18:51 | ECHRPT ---
Indication: HEART FAILURE CONCLUSIONS The left ventricular systolic function is low normal with an estimated ejection fraction in the rang e of 50- 55%. Mild concentric left ventricular hypertrophy. Mild mitral valve regurgitation. There is mild tricuspid valve regurgitation. Mild pulmonary valve regurgitation. BP: / HR: Rhythm: MEASUREMENTS (Male / Female) Normal Values Technical Quality: 2D ECHO LV Diastolic Diameter PLAX 5.5 cm 4.2 - 5.9 / 3.9 - 5.3 cm LV Systolic Diameter PLAX 4.4 cm IVS Diastolic Thickness 1.2 cm 0.6 - 1.0 / 0.6 - 0.9 cm LVPW Diastolic Thickness 1.1 cm 0.6 - 1.0 / 0.6 - 0.9 cm LV Relative Wall Thickness 0.4 RV Internal Dim ED PLAX 3.8 cm LVOT Diameter 2.0 cm Aortic Root Diameter 2.7 cm LA Systolic Diameter LX 4.4 cm 3.0 - 4.0 / 2.7 - 3.8 cm LV Ejection Fraction MOD BP 63.4 % >= 55 % LV Ejection Fraction MOD 4C 52.1 % LV Ejection Fraction 4C AL 50.9 % LV Ejection Fraction MOD 2C 66.4 % LV Ejection Fraction 2C AL 67.3 % M-MODE Aortic Root Diameter MM 3.3 cm LA Systolic Diameter MM 5.3 cm LA Ao Ratio MM 1.6 AV Cusp Separation MM 1.6 cm DOPPLER AV Peak Velocity 154.0 cm/s AV Peak Gradient 9.5 mmHg LVOT Peak Velocity 113.0 cm/s LVOT Peak Gradient 5.1 mmHg AV Area Cont Eq pk 2.3 cm Mitral E Point Velocity 66.4 cm/s Mitral A Point Velocity 65.6 cm/s Mitral E to A Ratio 1.0 LV E' Lateral Velocity 2.7 cm/s Mitral E to LV E' Lateral Ratio 24.3 LV E' Septal Velocity 3.6 cm/s Mitral E to LV E' Septal Ratio 18.4 TR Peak Velocity 263.0 cm/s TR Peak Gradient 27.7 mmHg Right Atrial Pressure 10.0 mmHg Pulmonary Artery Systolic Pressu 37.7 mmHg Right Ventricular Systolic Press 37.7 mmHg PV Peak Velocity 163.0 cm/s PV Peak Gradient 10.6 mmHg FINDINGS LEFT VENTRICLE Normal left ventricular size. The left ventricular systolic function is low normal with an estimated ejection fraction in the rang e of 50- 55%. Mild concentric left ventricular hypertrophy. No regional wall motion abnormalities are present. RIGHT VENTRICLE Normal right ventricular size and systolic function. LEFT ATRIUM The left atrial size is mildly dilated. RIGHT ATRIUM The right atrial size is normal. ATRIAL SEPTUM Normal atrial septal thickness without atrial level shunting by limited color doppler interrogation. AORTA The aortic root and proximal ascending aorta are normal in size on limited imaging. MITRAL VALVE Structurally normal mitral valve. Mild mitral valve regurgitation. No mitral valve stenosis. AORTIC VALVE Aortic valve sclerosis is present. No aortic valve regurgitation. No aortic valve stenosis. TRICUSPID VALVE The estimated pulmonary arterial pressure is 38 mmHg. There is mild tricuspid valve regurgitation. Structurally normal tricuspid valve. PULMONARY VALVE Mild pulmonary valve regurgitation. VESSELS The inferior vena cava is normal in size. PERICARDIUM No pericardial effusion. Warren Lozoya DO (Electronically Signed) Final Date:16 September 2018 18:50
[2018-09-16] MEDS ORDERED: Vancomycin Inj 1,000 MG in Sodium Chlor 0.9% Inj 250 ML IV.SIG ONE (22:00)
[2018-09-16] MEDS: fentaNYL 10 mcg/mL Premix Drip 2,500 MCG/250 ML BAG IV.SIG PRN (23:03)
[2018-09-16 23:26] LABS: Calcium 8.8 mg/dL (8.5-10.1); Carbon Dioxide 27.6 meq/L (21.0-32.0); Magnesium 1.8 mg/dL (1.5-2.5); Potassium 3.4 meq/L (3.5-5.1)
[2018-09-16 23:33] LABS: Phosphorus 3.3 mg/dL (2.5-4.9)
[2018-09-17] MEDS: Oral Hygiene Kit OROPHARYNG SCH ×4 (00:41→16:26)
[2018-09-17] MEDS: Furosemide Inj 100 MG in Sodium Chlor 0.9% Inj 90 ML IV.CONT SCH ×2 (00:54→10:06)
[2018-09-17] MEDS: Propofol 1000 mg/100 ml Inj 1,000 MG/100 ML BOTTLE IV.CONT PRN (01:47)
[2018-09-17] MEDS: Chlorhexidine Gluconate 2% 1 Pack (2 Cloths) TOPICAL SCH (03:08)
[2018-09-17 04:36] LABS: Baso % (Auto) 0.6 % (0.0-2.0); Eos % (Auto) 0.4 % (0.0-4.0); Hematocrit 34.8 % (39.0-51.0); Hemoglobin 11.4 gm/dL (13.0-17.0); Lymph # (Auto) 0.9 th/mm3 (1.0-4.8); Lymph % (Auto) 12.4 % (9.0-44.0); Mean Corpuscular HGB Conc 32.7 % (32.0-36.0); Mean Corpuscular Hemoglobin 28.7 pg (27.0-34.0); Mean Corpuscular Volume 87.8 fL (80.0-100.0); Mono # (Auto) 0.8 th/mm3 (0.0-0.9); Mono % (Auto) 10.9 % (0.0-8.0); Neut # (Auto) 5.6 th/mm3 (1.8-7.7); Neut % (Auto) 75.7 % (16.0-70.0); Platelet Count 132 th/mm3 (150-450); Red Blood Count 3.96 mil/mm3 (4.50-5.90); Red Cell Distribution Width 18.7 % (11.6-17.2); White Blood Count 7.4 th/mm3 (4.0-11.0)
[2018-09-17 04:56] LABS: INR 1.2 Ratio
[2018-09-17 04:58] LABS: Calcium 8.8 mg/dL (8.5-10.1); Carbon Dioxide 27.5 meq/L (21.0-32.0); Magnesium 1.9 mg/dL (1.5-2.5); Phosphorus 2.7 mg/dL (2.5-4.9)
[2018-09-17 05:13] LABS: ABG Base Excess 2.5 mmol/L (-2-2); ABG PCO2 36 mmHg (38-42); ABG PO2 69 mmHG (61-120)
[2018-09-17] MEDS: Piperacil/Tazo 4.5 GM Premix 4.5 GM/100 ML BAG IV.SIG SCH ×3 (05:49→16:07)
[2018-09-17] MEDS: Heparin - SQ 10,000 UNITS/ML Vial SQ SCH ×3 (05:51→21:01)
[2018-09-17] MEDS: Famotidine PF Inj 20 MG/2 ML Vial IV.PUSH SCH ×2 (08:00→20:54)
[2018-09-17] MEDS: Chlorhexidine 0.12% Oral Kit 15 ML UDC OROPHARYNG SCH ×2 (08:00→19:09)
[2018-09-17] MEDS: Senna/Docusate Sodium 8.6/50 MG Tablet PO SCH ×2 (08:01→20:54)
[2018-09-17] MEDS: Polyethylene Glycol 3350 17 GM Packet PO SCH ×2 (08:01→20:54)
--- NOTE | 2018-09-17 08:58 | P.PNCC ---
Subjective Subjective Remarks/Hospital Course: Hospital Course: 73yM with history of CHF s/p CABG for CAD presents with worsening shortness of breath. decompensated in the ER requiring intubation. BNP > 1400. lactate elevated. sbp elevated in the 190s. cxr suggestive of pulmonary edema. no history of sputum production, fever, chills. no information available from the patient due to his condition. ROS unobtainable. per his , he sees Dr. Flannery for "a leaky valve" and "heart failure." The patient has no records in our hospital system. I have ordered 2d echo and have asked Dr. Flannery's team to evaluate him if indeed he sees the patient as an outpatient. Subjective: 09/16: remains intubated. BNP higher despite forced diuresis. starting lasix drip. echo pending. per , it is not the same Darrinr from [facility], but a cardiology group near [place] who sees him, so we will cancel the cardiology consult for Dr. Flannery. unable to wean from mechanical ventilation due to worsening pulmonary edema on cxr and rising BNP despite attempts at diuresis. remains critically ill. ROS unobtainable. 09/17: good diuresis. bnp downtrending. awake and follows commands. on SBT. clinically starting to improve. Objective Vital Signs / I&O: Vital Signs 09/16/18 09:00 09/16/18 11:13 09/16/18 12:00 Temperature 36.7 C Pulse Rate 52 L 92 H 52 L Respiratory Rate 16 16 Blood Pressure 106/55 L Pulse Oximetry 96 95 09/16/18 14:15 09/16/18 15:15 09/16/18 16:00 Temperature 36.9 C Pulse Rate 53 L 51 L Respiratory Rate 16 16 16 Blood Pressure 111/55 L Pulse Oximetry 98 98 09/16/18 19:38 09/16/18 19:40 09/16/18 20:00 Temperature 37.0 C Pulse Rate 51 L 51 L Respiratory Rate 16 16 0 L Blood Pressure 120/56 L Pulse Oximetry 97 98 09/16/18 20:30 09/16/18 21:00 09/16/18 21:30 Temperature Pulse Rate 66 53 L 51 L Respiratory Rate 17 16 16 Blood Pressure 125/73 116/57 L 114/56 L Pulse Oximetry 98 98 98 09/16/18 22:00 09/16/18 22:30 09/16/18 23:00 Temperature Pulse Rate 52 L 54 L 53 L Respiratory Rate 16 16 16 Blood Pressure 123/58 L 141/64 H 116/59 L Pulse Oximetry 99 97 100 09/16/18 23:30 09/16/18 23:51 09/17/18 00:00 Temperature 36.8 C Pulse Rate 52 L 53 L 57 L Respiratory Rate 16 16 16 Blood Pressure 120/60 125/58 L Pulse Oximetry 100 100 09/17/18 00:06 09/17/18 00:19 09/17/18 00:21 Temperature Pulse Rate 109 H 65 Respiratory Rate 29 H 14 16 Blood Pressure 134/61 Pulse Oximetry 92 L 99 09/17/18 00:30 09/17/18 01:00 09/17/18 01:30 Temperature Pulse Rate 55 L 51 L 51 L Respiratory Rate 16 16 16 Blood Pressure 107/54 L 108/57 L 120/58 L Pulse Oximetry 92 L 96 98 09/17/18 02:00 09/17/18 02:30 09/17/18 03:00 Temperature Pulse Rate 50 L 51 L 50 L Respiratory Rate 16 16 16 Blood Pressure 125/60 132/62 133/63 Pulse Oximetry 100 100 99 09/17/18 03:27 09/17/18 03:30 09/17/18 04:00 Temperature 37.1 C Pulse Rate 50 L 52 L 51 L Respiratory Rate 16 16 16 Blood Pressure 129/60 Pulse Oximetry 100 93 L 95 09/17/18 04:01 09/17/18 04:31 09/17/18 04:33 Temperature Pulse Rate 50 L 59 L 59 L Respiratory Rate 16 20 20 Blood Pressure 126/63 150/118 H 120/66 Pulse Oximetry 95 92 L 95 09/17/18 05:00 09/17/18 05:04 09/17/18 05:30 Temperature Pulse Rate 51 L 50 L 50 L Respiratory Rate 16 16 16 Blood Pressure 115/56 L 116/56 L Pulse Oximetry 97 97 92 L 09/17/18 06:00 09/17/18 06:30 09/17/18 07:39 Temperature Pulse Rate 50 L 50 L 51 L Respiratory Rate 16 16 16 Blood Pressure 124/58 L 122/58 L Pulse Oximetry 97 100 09/17/18 07:40 Temperature Pulse Rate Respiratory Rate 16 Blood Pressure Pulse Oximetry 99 Intake & Output 09/16/18 09/17/18 09/17/18 18:59 06:59 18:59 Intake Total 300 / 300 960 / 960 Output Total 725 / 725 2400 / 2400 Balance -425 / -425 -1440 / -1440 Weight 75.5 kg Intake: IV 300 / 300 720 / 720 Lasix Inj 100 MG In NS Inj 90 95 / 95 ML @ 10 mls/hr IV.CONT .Q10H RON Rx#:[id number] Diprivan 1000 mg/100 ml Inj 1, 100 / 100 95 / 95 000 mg In 100 ml @ 5 MCG/KG/MIN 2.449 mls/hr IV.CONT TITRATE PRN Rx#:[id number] Zosyn 4.5 GM Premix 4.5 gm In 200 / 200 190 / 190 100 ml @ 200 mls/hr IV.SIG Q6H RON Rx#:[id number] Vancomycin Inj 1,000 MG In NS 240 / 240 Inj 250 ML @ 250 mls/hr IV.SIG ONCE ONE Rx#:[id number] fentaNYL 10 mcg/mL Premix Drip 100 / 100 2,500 mcg In 250 ml @ 50 MCG/HR 5 mls/hr IV.SIG TITRATE PRN Rx #:[id number] Oral 0 / 0 Tube Irrigant 240 / 240 Output: Urine Amount (Catheter) 725 / 725 2400 / 2400 Indwelling Urethral Catheter 725 / 725 2400 / 2400 Other: Date of Last Bowel Movement 09/17/18 # Bowel Movements 0 # Incontinent Bowel Movements 1 Result Diagrams: 09/17/18 03:33 09/17/18 03:33 Objective Remarks: gen: elderly male, lying in bed, intubated, sedated, critically ill. heent: nc. at. perrl. mmm. neck: +JVD. trachea midline. chest: intubated. PSV 5/5/40%. equal chest rise. cv: bradycardic rate with frequent pvc's. regular rhythm. abd: soft, nontender, nondistended. no guarding. extr: 1+ edema. distal pulses 2+. neuro: RASS -1. follows commands. moves all extremities. Assessment and Plan - Assessment and Plan Plan: Assessment: 73yM with acute hypoxic and hypercarbic respiratory failure secondary to acute severe congestive heart failure exacerbation of unknown etiology. now diuresing appropriately. will work towards weaning to extubate today if possible. remains high risk and critically ill with severe pulmonary edema. Neuro: Acute metabolic encephalopathy - frequent neuro checks - propofol, fentanyl for goal RASS -2 - daily sedation vacations Resp Acute hypoxic and hypercarbic respiratory failure- improving. Severe acute pulmonary edema- improving. - vent bundle, hob elevated, nebs - start SBT today. wean to extubate if possible. - lasix drip - wean fio2 for goal spo2 > 90% CV Severe acute congestive heart failure exacerbation, preserved EF type Type II NSTEMI secondary to demand ischemia - 2d echo 09/16: EF 55%, mild MR, mild PI, concentric LVH. - continue forced diuresis. - trend bmp - trops downtrending. secondary to demand ischemia from CHF. will stop trending. no indication for anticoagulation at this time. Renal: Acute kidney injury BPH Urinary obstruction - bedside RN unable to place bullard - I placed bullard 09/16. must remain in place. - q1h uop checks - forced diuresis - am bmp - lasix drip FEN/GI Acute intravascular volume overload- improving. lactic acidosis- resolved - lactate secondary to cardiogenic shock from CHF, resolving. - NPO - OG tube to LIWS - forced diuresis - ICU electrolyte protocol - daily bmp, mg, phos Heme/ID: no infectious etiology suspected at this time daily cbc Endo: Hypoglycemia frequent glucose checks d50w as needed Prophylaxis: scds pepcid sqh Lines: piv bullard dispo: remain in ICU. remains critically ill.
[2018-09-17 14:48] LABS: Calcium 9.6 mg/dL (8.5-10.1); Carbon Dioxide 31.3 meq/L (21.0-32.0); Magnesium 1.9 mg/dL (1.5-2.5); Potassium 3.1 meq/L (3.5-5.1)
[2018-09-18] MEDS: Piperacil/Tazo 4.5 GM Premix 4.5 GM/100 ML BAG IV.SIG SCH ×5 (00:26→22:41)
[2018-09-18] MEDS: Oral Hygiene Kit OROPHARYNG SCH ×4 (00:26→15:27)
[2018-09-18 03:57] LABS: Baso # (Auto) 0.1 th/mm3 (0.0-0.2); Baso % (Auto) 0.7 % (0.0-2.0); Eos # (Auto) 0.1 th/mm3 (0.0-0.4); Eos % (Auto) 0.7 % (0.0-4.0); Hematocrit 40.3 % (39.0-51.0); Hemoglobin 12.9 gm/dL (13.0-17.0); Lymph # (Auto) 0.7 th/mm3 (1.0-4.8); Lymph % (Auto) 8.2 % (9.0-44.0); Mean Corpuscular Hemoglobin 28.3 pg (27.0-34.0); Mean Corpuscular Volume 88.6 fL (80.0-100.0); Mean Platelet Volume 8.9 fL (7.0-11.0); Mono # (Auto) 0.9 th/mm3 (0.0-0.9); Mono % (Auto) 10.7 % (0.0-8.0); Neut # (Auto) 6.7 th/mm3 (1.8-7.7); Neut % (Auto) 79.7 % (16.0-70.0); Platelet Count 153 th/mm3 (150-450); Red Blood Count 4.55 mil/mm3 (4.50-5.90); Red Cell Distribution Width 18.2 % (11.6-17.2); White Blood Count 8.4 th/mm3 (4.0-11.0)
[2018-09-18 04:08] LABS: INR 1.1 Ratio; Prothrombin Time 11.6 sec (9.8-11.6)
[2018-09-18] MEDS: Chlorhexidine Gluconate 2% 1 Pack (2 Cloths) TOPICAL SCH (04:15)
[2018-09-18 04:22] LABS: Calcium 10.3 mg/dL (8.5-10.1); Carbon Dioxide 31.2 meq/L (21.0-32.0); Magnesium 1.9 mg/dL (1.5-2.5); Phosphorus 4.4 mg/dL (2.5-4.9)
[2018-09-18 04:25] LABS: Potassium 2.7 meq/L (3.5-5.1)
[2018-09-18] MEDS: Potassium Chlor 20 mEq Premix 20 MEQ/100 ML PIGGYBACK IV.SIG PRN ×4 (04:30→23:00)
[2018-09-18 05:06] LABS: ABG Base Excess 4.4 mmol/L (-2-2); ABG PCO2 40 mmHg (38-42); ABG PO2 86 mmHG (61-120)
[2018-09-18] MEDS: Heparin - SQ 10,000 UNITS/ML Vial SQ SCH ×3 (05:30→22:41)
[2018-09-18] MEDS: Famotidine PF Inj 20 MG/2 ML Vial IV.PUSH SCH ×2 (08:46→20:25)
[2018-09-18] MEDS: Polyethylene Glycol 3350 17 GM Packet PO SCH ×2 (08:47→20:25)
[2018-09-18] MEDS: Chlorhexidine 0.12% Oral Kit 15 ML UDC OROPHARYNG SCH ×2 (08:47→20:25)
[2018-09-18] MEDS: Senna/Docusate Sodium 8.6/50 MG Tablet PO SCH ×2 (08:48→20:26)
[2018-09-18] MEDS: Potassium Chlor 20 mEq Premix 20 MEQ/100 ML PIGGYBACK IV.SIG SCH ×4 (09:00→18:00)
--- NOTE | 2018-09-18 11:26 | P.PNIM ---
Subjective Interval history: Patient is upset today. He remains disoriented. Encephalopathy likely related to current health status which was preceded by respiratory failure and CHF exacerbation. His is bedside and reports that he is not to his regular baseline. Restraints are needed and continued. Physical Exam Vital signs: Last Vital Signs Temp 98 F 09/18/18 08:00 Pulse 69 09/18/18 08:30 Resp 18 09/18/18 08:30 BP 167/72 H 09/18/18 08:00 Pulse Ox 94 L 09/18/18 08:00 Intake & Output 09/16/18 09/17/18 09/18/18 09/19/18 06:59 06:59 06:59 06:59 Intake Total 2750 / 2750 1260 / 1260 980 / 980 100 / 100 Output Total 2220 / 2220 3125 / 3125 7425 / 7425 Balance 530 / 530 -1865 / -1865 -6445 / -6445 100 / 100 Weight 78 kg 75.5 kg 69.5 kg Narrative: GENERAL: NAD, A&Ox1 HEAD: Normocephalic. NECK: Supple, trachea midline. No lymphadenopathy. EYES: No scleral icterus. No injection or drainage. CARDIOVASCULAR: Regular rate and rhythm without murmurs, gallops, or rubs. RESPIRATORY: Breath sounds equal bilaterally. No accessory muscle use. GASTROINTESTINAL: Abdomen soft, non-tender, nondistended. MUSCULOSKELETAL: No cyanosis, or edema. Patient presently in restraints at forelimbs. SKIN: Warm and dry. NEURO: No focal neurological deficits. Urinary Catheter Management Indwelling Urethral Catheter: Cath placed during this visit: yes Urethral indwelling: No Insertion date: 09/15/18 Insertion time: 17:24 Results Labs CBC & Chem 7: 09/18/18 03:16 09/18/18 03:16 Labs: Microbiology 09/16/18 22:40 Blood - Peripheral Aerobic Blood Culture - Preliminary No growth in 2 days 09/16/18 22:40 Blood - Peripheral Anaerobic Blood Culture - Preliminary No growth in 2 days 09/16/18 22:45 Blood - Peripheral Aerobic Blood Culture - Preliminary No growth in 2 days 09/16/18 22:45 Blood - Peripheral Anaerobic Blood Culture - Preliminary No growth in 2 days 09/15/18 12:25 Blood - Peripheral Aerobic Blood Culture - Preliminary No growth in 3 days 09/15/18 12:25 Blood - Peripheral Anaerobic Blood Culture - Preliminary No growth in 3 days 09/15/18 12:15 Blood - Peripheral Aerobic Blood Culture - Preliminary Staphylococcus coag negative 09/15/18 12:15 Blood - Peripheral Anaerobic Blood Culture - Preliminary No growth in 3 days 09/15/18 23:35 Sputum - Endotracheal Gram Stain - Final 09/15/18 23:35 Sputum - Endotracheal Sputum Culture - Preliminary Heavy growth normal respiratory gabo at 24 hours 09/15/18 17:24 Clean Catch Urine Urine Culture - Final No growth in 48 hours Assessment and Plan Plan 73yM with acute hypoxic and hypercarbic respiratory failure secondary to acute severe congestive heart failure exacerbation of unknown etiology. Admitted with encephalopathy and placed on Duarte act. Responding well to diuretics thus far. Patient has been extubated yesterday. Acute metabolic encephalopathy Slow improvements Follow for further improvement, not yet to baseline Acute hypoxic respiratory failure Acute hypercarbic respiratory failure Severe acute pulmonary edema Continue diuresis Oxygen support as needed Continue nebulized treatments as needed Status post extubation Lasix drip Acute diastolic congestive heart failure on chronic diastolic congestive heart failure Type II NSTEMI, from demand ischemia Continue diuresis Follow renal function Acute kidney injury Urinary obstruction BPH Belcher had been placed on 09/16/[address] for now Continue diuresis Follow renal function Avoid nephrotoxins Acute intravascular volume overload Improving on diuretics Lactic acidosis Resolved Recent hypoglycemia Continue close blood sugar monitoring DVT prophylaxis SCDs Subcutaneous heparin Progress Note: Quality VTE Deep Vein Thrombosis/Pulmonary Embolism Present on Admission: No
--- NOTE | 2018-09-18 11:41 | P.CONPSY ---
Provisional Diagnosis Admission Date: September 15, 2018 12:17 Crawley I.: Delirium, Dementia History of Present Illness Service: ER Primary Care Provider: [facility] Chief Complaint: shortness of breath History of Present Illness: The patient is a 73-year-old man, domiciled with his in [facility], , retired, with a psychiatric history of dementia, no previous psychiatric hospitalizations, no previous suicide attempts, with medical history of CHF s/p CABG for CAD who presented with worsening shortness of breath. decompensated in the ER requiring intubation. BNP > 1400. lactate elevated. sbp elevated in the 190s. cxr suggestive of pulmonary edema. no history of sputum production, fever, chills. no information available from the patient due to his condition. ROS unobtainable. per his , he sees Dr. Flannery for "a leaky valve" and "heart failure." The patient has no records in our hospital system. I have ordered 2d echo and have asked Dr. Flannery's team to evaluate him if indeed he sees the patient as an outpatient. admitted due to with acute hypoxic and hypercarbic respiratory failure most likely secondary to acute severe congestive heart failure exacerbation of unknown etiology. Patient was consulted to psychiatry because he was Duarte acted by the law enforcement with allegation that he was refusing to come to the hospital and he was a danger to himself due to this refusal. Chart was reviewed. Collateral information from his Esme, was obtained. On my psychiatric evaluation the patient is irritable, a little bit agitated, very disorganized, disoriented, restrained in 2 points, unable to provide any meaningful information for the psychiatric assessment. He does deny suicidal ideation, homicidal ideation, visual and auditory hallucinations. However, his , he states that this mental status is no ususal in the patient. She says that he does have dementia, but he is still able to recognize his family, to have logical conversations, but he is not usually so agitated and disoriented. She clarifies that they called the police due to the medical problems of the patient and now with psychiatric concerns. She clarifies that the patient is not a danger to self and others, he understand that his judgment is impaired due to his acute medical condition, but he does not need a psychiatric hospitalization. PPHx: Patient has history of dementia diagnosed by PCP, but he is not a medication, no prepsychotic admissions, no pre-suicide attempt PMHx: CHF, s/p CABG, CAD Substance HX: Denies the use of illegal drugs family Hx: No family psychiatric Social Hx: Patient was born and raised in [place], he is a , domiciled with his in [facility], supported by nursing home benefits Review of Systems All other systems reviewed negative except as stated in HPI Psychiatric: Reports anxiety, Reports confusion, Reports irritability PMFSH - History History Provided By: Medical Record - Medical / Surgical Hx Neg / Unobtainable Medical Problems Denied: Unable to Obtain - Medical History Medical History: Medical History (Last Reviewed 09/18/18 @ 07:37 by Laura Hernandez) Chest pain Diabetes Myocardial infarction - Surgical History Surgical History: Surgical History (Last Reviewed 09/15/18 @ 21:31 by Van Leslie MD) Hx of cardiac cath S/P CABG x 2 - Family History Family History: Family History (Last Updated 09/15/18 @ 21:31 by Van Leslie MD) Other Family history non-contributory - Tobacco History Smoking Status: Unknown if ever smoked - Alcohol History How Often Do You Have a Drink Containing Alcohol: Unable to Obtain - Substance Use History Substance History: Unable to Obtain - Travel History Recent Travel in the [place] Within the Last 8 Weeks: No Recent Travel Out of the Country Within the Last 8 Weeks: No - Immunization History Tetanus Immunization: Unsure Hx Influenza Vaccine This Season: Yes Medications and Allergies Active Medications: Active Medications Acetaminophen (Tylenol) 650 mg PO Q6H PRN PRN Reason: TEMPERATURE > 101 F Albuterol (Duoneb Neb (Prn)) 1 ampul NEB Q2HR NEB PRN PRN Reason: SHORTNESS OF BREATH Albuterol (Duoneb Neb (Camelia)) 1 ampul NEB Q4HR NEB [facility] Last Admin: 09/18/18 08:29 Dose: 1 ampul Bisacodyl (Dulcolax Supp) 10 mg RECTAL DAILY PRN PRN Reason: if no BM in last 24h Chlorhexidine Gluconate (Peridex 0.12% Oral Kit) 15 ml OROPHARYNG BID@0800, 2000 [facility] Last Admin: 09/18/18 08:47 Dose: Not Given Chlorhexidine Gluconate (Chlorhexidine 2% Cloth) 3 pack TOPICAL DAILY@0400 [facility] Stop: 09/21/18 03:59 Last Admin: 09/18/18 04:15 Dose: 3 pack Chlorhexidine Gluconate (Chlorhexidine 2% Cloth) 3 pack TOPICAL DAILY@0400 PRN PRN Reason: Extra cloth needed Stop: 09/21/18 03:59 Dextrose (D50w Vial) 50 ml IV.PUSH UNSCH PRN PRN Reason: PER HYPOGLYCEMIA PROTOCOL Famotidine (Pepcid Pf Inj) 20 mg IV.PUSH Q12HR [facility] Last Admin: 09/18/18 08:46 Dose: 20 mg Furosemide (Lasix Inj) 40 mg IV.PUSH Q6HR [facility] Last Admin: 09/18/18 05:30 Dose: 40 mg Glucagon (Glucagon Inj) 1 mg OTHER PRN PRN PRN Reason: for Hypoglycemia Protocol Heparin Sodium (Porcine) (Heparin Inj) 5,000 units SQ Q8H [facility] Last Admin: 09/18/18 05:30 Dose: 5,000 units Hydralazine HCl (Apresoline Inj) 10 mg IV.PUSH Q30M PRN PRN Reason: sbp > 160, dbp > 95 Hydromorphone HCl (Dilaudid Pf Inj) 0.25 mg IV.PUSH Q1H PRN PRN Reason: pain 8-10 or not taking po Magnesium Sulfate 4 gm/ Sodium (Chloride) 100 mls @ 50 mls/hr IV.SIG UNSCH PRN PRN Reason: For Magnesium 0.9 - 1.1 mg/dL Magnesium Sulfate 2 gm/ Sodium (Chloride) 100 mls @ 50 mls/hr IV.SIG UNSCH PRN PRN Reason: For Magnesium 1.2 - 1.6 mg/dL Potassium Chloride (Kcl 40 Meq Premix Inj) 40 meq in 100 mls @ 25 mls/hr IV.SIG Q2H PRN PRN Reason: For Potassium 2.8 - 3.2 mEq/L Potassium Chloride (Kcl 20 Meq Premix Inj) 20 meq in 100 mls @ 50 mls/hr IV.SIG Q2H PRN PRN Reason: For Potassium 3.3 - 3.5 mEq/L Potassium Chloride (Kcl 40 Meq Premix Inj) 40 meq in 100 mls @ 25 mls/hr IV.SIG UNSCH PRN PRN Reason: For Potassium 3.3 - 3.5 mEq/L Potassium Chloride (Kcl 20 Meq Premix Inj) 20 meq in 100 mls @ 50 mls/hr IV.SIG Q2H PRN PRN Reason: For Potassium 2.8 - 3.2 mEq/L Last Admin: 09/18/18 08:45 Dose: 50 mls/hr Potassium Phosphate 30 mmol/ (Sodium Chloride) 260 mls @ 42 mls/hr IV.SIG UNSCH PRN PRN Reason: SEE LABEL COMMENTS Sodium Phosphate 30 mmol/ (Sodium Chloride) 260 mls @ 42 mls/hr IV.SIG UNSCH PRN PRN Reason: For Phosphorus < 2.5 mg/dL Piperacillin/Tazobactam/Dextrose (Zosyn 4.5 Gm Premix) 4.5 gm in 100 mls @ 200 mls/hr IV.SIG Q6H [facility] Last Infusion: 09/18/18 05:30 Dose: Infused Potassium Chloride (Kcl 20 Meq Premix Inj) 20 meq in 100 mls @ 50 mls/hr IV.SIG Q2H [facility] Stop: 09/18/18 12:59 Labetalol HCl (Trandate Inj) 10 mg IV.PUSH Q20M PRN PRN Reason: sbp > 160 or DBP > 95 Lactulose (Lactulose Liq) 30 ml PO BID [facility] Last Admin: 09/18/18 08:47 Dose: Not Given Magnesium Oxide (Mag-Ox) 800 mg PO UNSCH PRN PRN Reason: For Magnesium 1.2 - 1.6 mg/dL Miscellaneous Medication () 1 each OROPHARYNG 0000,0400,1200,1600 [facility] Last Admin: 09/18/18 04:15 Dose: Not Given Ondansetron HCl (Zofran Inj) 4 mg IV.PUSH Q6H PRN PRN Reason: NAUSEA OR VOMITING Oxycodone HCl (Roxicodone) 5 mg PO Q4H PRN PRN Reason: Pain 1-5 Polyethylene Glycol (Miralax) 17 gm PO BID [facility] Last Admin: 09/18/18 08:47 Dose: Not Given Potassium Bicarb/Potassium Chloride (K-Lyte Cl Eff) 50 meq PO UNSCH PRN PRN Reason: For Potassium 3.3 - 3.5 mEq/L Last Admin: 09/17/18 00:58 Dose: 50 meq Potassium Phosphate (K-Phos Original) 2,000 mg PO Q4H PRN PRN Reason: Phosphorus Less Than 2.5 mg/dL Potassium Phosphate (K-Phos Original) 2,000 mg PO UNSCH PRN PRN Reason: SEE LABEL COMMENTS Senna/Docusate Sodium (Shauna-Colace) 1 tab PO BID [facility] Last Admin: 09/18/18 08:48 Dose: Not Given Sodium Chloride (Ns Flush) 2 ml IV.FLUSH PRN PRN PRN Reason: FLUSH AFTER USING IV ACCESS Sodium Chloride (Ns Flush) 2 ml IV.FLUSH UNSCH PRN PRN Reason: FLUSH AFTER USING IV ACCESS Allergies Allergy/AdvReac Type Severity Reaction Status Date / Time No Known Allergies Allergy Uncoded 01/28/15 04:04 Home Medications Medication Instructions Recorded Confirmed Type alfuzosin 10 mg PO DAILY 09/15/18 09/15/18 History aspirin 325 mg PO DAILY 09/15/18 09/15/18 History atorvastatin [Lipitor] 40 mg PO HS 09/15/18 09/15/18 History benzonatate [Tessalon Perles] 200 mg PO Q8HR PRN 09/15/18 09/15/18 History carvedilol [Coreg] 12.5 mg PO BID 09/15/18 09/15/18 History cholecalciferol (vitamin D3) 2,000 unit PO DAILY 09/15/18 09/15/18 History [Vitamin D3] insulin NPH and regular human 1 sliding scale dose SUBCUT UD 09/15/18 09/15/18 History [Novolin 70/30 U-100 Insulin] isosorbide mononitrate 30 mg PO DAILY 09/15/18 09/15/18 History lisinopril 2.5 mg PO DAILY 09/15/18 09/15/18 History Exam Vital signs: Vital Signs 09/17/18 12:00 09/17/18 15:29 09/17/18 16:00 Temperature 97.6 F 98.7 F Pulse Rate 72 75 Respiratory Rate Blood Pressure 137/103 H 155/72 H Pulse Oximetry 97 94 L 98 09/17/18 19:00 09/17/18 19:48 09/17/18 19:49 Temperature Pulse Rate 73 Respiratory Rate 18 Blood Pressure Pulse Oximetry 96 95 09/17/18 20:00 09/17/18 22:00 09/18/18 00:00 Temperature 97.7 F 97.9 F Pulse Rate 73 72 72 Respiratory Rate 22 23 Blood Pressure 150/70 H 132/61 Pulse Oximetry 94 L 95 09/18/18 00:37 09/18/18 02:00 09/18/18 04:00 Temperature 98.8 F Pulse Rate 79 65 72 Respiratory Rate 18 22 Blood Pressure 163/70 H Pulse Oximetry 99 96 09/18/18 04:01 09/18/18 06:00 09/18/18 08:00 Temperature 98 F Pulse Rate 73 70 70 Respiratory Rate 21 24 Blood Pressure 167/72 H Pulse Oximetry 94 L 09/18/18 08:30 Temperature Pulse Rate 69 Respiratory Rate 18 Blood Pressure Pulse Oximetry Intake & Output 09/17/18 09/18/18 09/18/18 18:59 06:59 18:59 Intake Total 380 / 380 600 / 600 100 / 100 Output Total 3575 / 3575 3850 / 3850 Balance -3195 / -3195 -3250 / -3250 100 / 100 Weight 69.5 kg Intake: IV 220 / 220 600 / 600 100 / 100 Lasix Inj 100 MG In NS Inj 90 100 / 100 100 / 100 ML @ 10 mls/hr IV.CONT .Q10H [facility] Rx#:[id number] Diprivan 1000 mg/100 ml Inj 1, 20 / 20 000 mg In 100 ml @ 5 MCG/KG/MIN 2.449 mls/hr IV.CONT TITRATE PRN Rx#:[id number] Zosyn 4.5 GM Premix 4.5 gm In 100 / 100 300 / 300 100 ml @ 200 mls/hr IV.SIG Q6H [facility] Rx#:[id number] KCl 20 mEq Premix Inj 20 meq In 100 / 100 100 / 100 100 ml @ 50 mls/hr IV.SIG Q2H PRN Rx#:[id number] fentaNYL 10 mcg/mL Premix Drip 100 / 100 2,500 mcg In 250 ml @ 50 MCG/HR 5 mls/hr IV.SIG TITRATE PRN Rx #:[id number] Tube Irrigant 160 / 160 Output: Urine Amount (Catheter) 3575 / 3575 3850 / 3850 Indwelling Urethral Catheter 3575 / 3575 3850 / 3850 Other: Date of Last Bowel Movement 09/17/18 09/18/18 09/18/18 # Incontinent Bowel Movements 1 Mental Status Examination Appearance: Appropriate Consciousness: Clouded Orientation: Person Speech: Incoherent Language: Adequate Fund of Knowledge: Poor Attention and Concentration: Inadequate Memory: Impaired Mood: Irritable Affect: Irritable Thought Process & Associations: Loose associations Thought Content: Bizarre thinking Hallucination Type: None Delusion Type: Bizarre Suicidal Ideation: No Suicidal Plan: No Suicidal Intention: No Homicidal Ideation: No Homicidal Plan: No Homicidal Intention: No Insight: Poor Judgment: Poor Assessment and Plan - Assessment (1) Delirium Code(s): R41.0 - Disorientation, unspecified Status: Acute - Plan Plan: On psychiatric evaluation today the patient presents agitated, irritable, disorganized, with prominent fluctuation of consciousness and attention deficit , disoriented, unable to provide any significant information for the psychiatric assessment. Patient does denies suicidal and homicidal ideation, denies visual and auditory hallucinations. Current psychiatric symptoms seems to be secondary with delirium most probably related with multiple acute medical conditions. Patient has psychiatric history of dementia, no hospitalizations, no suicide attempts. Patient does not meet criteria for involuntary psychiatric admission. Delirium A with low dose of antipsychotics, Seroquel 25 mg twice daily, Haldol 1-2 mg IM every 8 hours as needed severe agitation. Avoid deliriogenic medical as much as possible, benzodiazepines/opiates/ anticholinergic drugs. Familiar faces around, frequent reorientation, sensory stimulation also recommended. Duarte act will be lifted. Justification for Continued Inpatient Stay: No admission is indicated.
--- NOTE | 2018-09-18 11:44 | P.DIET ---
Nutritional Evaluation Type of nutrition evaluation: initial Screening comments: 09/18 NPO alert x 3 days Objective - Diagnosis respiratory failure, pulmonary edema - Objective Body Mass Index: 25.5 % IBW: 106 (IBW = 166lb) Body Weight Used for Calculations: Actual (80kg) Energy Needs - Lower Range (kCal/kg): 22 Energy Needs - Upper Range (kCal/kg): 28 Lower Limit kCal/kg (kCals): 1,760 Upper Limit kCal/kg (kCals): 2,240 Lower Limit Protein Factor (Grams per Kg): 1.1 Upper Limit Protein Factor (Grams per Kg): 1.3 Lower Protein Needs (Protein): 88 Upper Protein Needs (Protein): 104 Dietitian Reviewed in Medical Record: Curent medications, Intake & Output, Labs , Medical history Diet Order: npo Objective Comments: PMH: DM, PR, hx of cardiac cath, s/p CABG x2 Labs: K+ 2.7 BUN 32, Cr 1.85, GFR 36, random glucose 125 114 113 Assessment Assessment: Pt currently NPO x3 days. Pt was intubated on 09/15 d/t respiratory failure, extubated yesterday 09/17. ST note reviewed, pt to remain NPO short term d/t pt coughing during PO trials. Labs reviewed. RD to monitor NPO status. Consult dietitian for nutritional recs as needed. Recommendations: 1. ST note reviewed, pt to remain NPO short term d/t pt coughing during PO trials 2. Dietitian to monitor NPO status 3. Consult dietitian for nutritional recs as needed Dietitian to Monitor: Lab values, Renal labs, Glucose level, Intake & Output, Diet advancement, Swallow recommendations, Medical course
[2018-09-19] MEDS: Oral Hygiene Kit OROPHARYNG SCH ×4 (01:11→18:11)
[2018-09-19] MEDS: Potassium Chlor 20 mEq Premix 20 MEQ/100 ML PIGGYBACK IV.SIG PRN ×3 (01:14→05:46)
[2018-09-19 05:12] LABS: INR 1.2 Ratio; Prothrombin Time 11.8 sec (9.8-11.6)
[2018-09-19 05:21] LABS: Alanine Aminotransferase 15 U/L (12-78); Albumin 2.8 g/dL (3.4-5.0); Alkaline Phosphatase 69 U/L (45-117); Anion Gap 14 meq/L (5-15); Aspartate Aminotransferase 24 U/L (15-37); Blood Urea Nitrogen 36 mg/dL (7-18); Calcium 9.5 mg/dL (8.5-10.1); Carbon Dioxide 24.7 meq/L (21.0-32.0); Chloride 105 meq/L (98-107); Glomerular Filtration Rate 38 mL/min (>89); Glucose,Random 131 mg/dL (74-106); Magnesium 2.2 mg/dL (1.5-2.5); Phosphorus 4.4 mg/dL (2.5-4.9); Potassium 3.6 meq/L (3.5-5.1); Total Protein 7.6 g/dL (6.4-8.2)
[2018-09-19 05:22] LABS: Sodium 144 meq/L (136-145)
[2018-09-19 05:39] LABS: Baso # (Auto) 0.1 th/mm3 (0.0-0.2); Baso % (Auto) 1.6 % (0.0-2.0); Eos # (Auto) 0.1 th/mm3 (0.0-0.4); Eos % (Auto) 0.9 % (0.0-4.0); Hemoglobin 13.6 gm/dL (13.0-17.0); Lymph # (Auto) 0.7 th/mm3 (1.0-4.8); Lymph % (Auto) 8.5 % (9.0-44.0); Mean Corpuscular Hemoglobin 28.9 pg (27.0-34.0); Mean Platelet Volume 9.3 fL (7.0-11.0); Mono # (Auto) 0.8 th/mm3 (0.0-0.9); Mono % (Auto) 9.5 % (0.0-8.0); Neut # (Auto) 6.8 th/mm3 (1.8-7.7); Neut % (Auto) 79.5 % (16.0-70.0); Platelet Count 75 th/mm3 (150-450); Red Blood Count 4.71 mil/mm3 (4.50-5.90); White Blood Count 8.5 th/mm3 (4.0-11.0)
[2018-09-19] MEDS: Chlorhexidine Gluconate 2% 1 Pack (2 Cloths) TOPICAL SCH (05:45)
[2018-09-19] MEDS: Piperacil/Tazo 4.5 GM Premix 4.5 GM/100 ML BAG IV.SIG SCH ×4 (05:47→22:27)
[2018-09-19] MEDS: Heparin - SQ 10,000 UNITS/ML Vial SQ SCH ×3 (05:48→21:50)
[2018-09-19] MEDS: Famotidine PF Inj 20 MG/2 ML Vial IV.PUSH SCH ×2 (10:34→21:49)
[2018-09-19] MEDS: Polyethylene Glycol 3350 17 GM Packet PO SCH ×2 (10:35→21:55)
[2018-09-19] MEDS: Chlorhexidine 0.12% Oral Kit 15 ML UDC OROPHARYNG SCH ×2 (10:35→21:50)
[2018-09-19] MEDS: Senna/Docusate Sodium 8.6/50 MG Tablet PO SCH ×2 (10:35→21:49)
--- NOTE | 2018-09-19 11:40 | P.PNIM ---
Subjective Interval history: No significant improvement in mental status, it is not yet back to baseline. However, patient does show improvement in his respiratory status. Stable for transfer out of ICU today. Physical Exam Vital signs: Last Vital Signs Temp 98.7 F 09/19/18 04:00 Pulse 55 L 09/19/18 07:00 Resp 14 09/19/18 07:00 BP 145/93 H 09/19/18 01:00 Pulse Ox 97 09/19/18 07:00 Intake & Output 09/17/18 09/18/18 09/19/18 09/20/18 06:59 06:59 06:59 06:59 Intake Total 1260 / 1260 980 / 980 1000 / 1000 200 / 200 Output Total 3125 / 3125 7425 / 7425 1600 / 1600 Balance -1865 / -1865 -6445 / -6445 -600 / -600 200 / 200 Weight 75.5 kg 69.5 kg Narrative: GENERAL: NAD, A&Ox1 HEAD: Normocephalic. NECK: Supple, trachea midline. No lymphadenopathy. EYES: No scleral icterus. No injection or drainage. CARDIOVASCULAR: Regular rate and rhythm without murmurs, gallops, or rubs. RESPIRATORY: Breath sounds equal bilaterally. No accessory muscle use. GASTROINTESTINAL: Abdomen soft, non-tender, nondistended. MUSCULOSKELETAL: No cyanosis, or edema. Patient presently in restraints at forelimbs. SKIN: Warm and dry. NEURO: No focal neurological deficits. Urinary Catheter Management Indwelling Urethral Catheter: Cath placed during this visit: yes Urethral indwelling: No Insertion date: 09/15/18 Insertion time: 17:24 Results Labs CBC & Chem 7: 09/19/18 03:43 09/19/18 03:43 Labs: Microbiology 09/16/18 22:40 Blood - Peripheral Aerobic Blood Culture - Preliminary No growth in 3 days 09/16/18 22:40 Blood - Peripheral Anaerobic Blood Culture - Preliminary No growth in 3 days 09/16/18 22:45 Blood - Peripheral Aerobic Blood Culture - Preliminary No growth in 3 days 09/16/18 22:45 Blood - Peripheral Anaerobic Blood Culture - Preliminary No growth in 3 days 09/15/18 12:25 Blood - Peripheral Aerobic Blood Culture - Preliminary No growth in 4 days 09/15/18 12:25 Blood - Peripheral Anaerobic Blood Culture - Preliminary No growth in 4 days 09/15/18 12:15 Blood - Peripheral Aerobic Blood Culture - Final Staphylococcus epidermidis 09/15/18 12:15 Blood - Peripheral Anaerobic Blood Culture - Preliminary No growth in 4 days 09/15/18 23:35 Sputum - Endotracheal Gram Stain - Final 09/15/18 23:35 Sputum - Endotracheal Sputum Culture - Final Heavy growth normal respiratory gabo Assessment and Plan (1) Delirium: Code(s): R41.0 - Disorientation, unspecified Status: Acute Plan 73yM with acute hypoxic and hypercarbic respiratory failure secondary to acute severe congestive heart failure exacerbation of unknown etiology. Admitted with encephalopathy and placed on Duarte act. Responding well to diuretics thus far. Patient has been extubated 09/17/2018. Stable for transfer out of ICU today. Transfer to [facility]. Continue monitoring mental status for improvement. Continue diuresis. Acute metabolic encephalopathy Acute delirium Slow improvements Follow for further improvement, not yet to baseline Acute hypoxic respiratory failure Acute hypercarbic respiratory failure Severe acute pulmonary edema Continue diuresis Oxygen support as needed Continue nebulized treatments as needed Status post extubation Lasix drip Acute diastolic congestive heart failure on chronic diastolic congestive heart failure Type II NSTEMI, from demand ischemia Continue diuresis Follow renal function Acute kidney injury Urinary obstruction BPH Belcher had been placed on 09/16/[address] for now Continue diuresis Follow renal function Avoid nephrotoxins Acute intravascular volume overload Improving on diuretics Lactic acidosis Resolved Recent hypoglycemia Continue close blood sugar monitoring DVT prophylaxis SCDs Subcutaneous heparin Progress Note: Quality VTE Deep Vein Thrombosis/Pulmonary Embolism Present on Admission: No
[2018-09-19] MEDS ORDERED: Dextrose 50% in Water 50 ML Vial IV.PUSH PRN (13:49)
[2018-09-19] MEDS: Insulin NovoLOG Aspart Correctional Sugar Inj SQ SCH ×2 (18:13→21:49)
[2018-09-20] MEDS: Oral Hygiene Kit OROPHARYNG SCH ×4 (01:22→17:20)
[2018-09-20] MEDS: Piperacil/Tazo 4.5 GM Premix 4.5 GM/100 ML BAG IV.SIG SCH ×2 (05:41→11:45)
[2018-09-20] MEDS: Heparin - SQ 10,000 UNITS/ML Vial SQ SCH ×3 (05:42→21:00)
[2018-09-20] MEDS: Chlorhexidine Gluconate 2% 1 Pack (2 Cloths) TOPICAL SCH (05:42)
[2018-09-20 07:16] LABS: INR 1.1 Ratio; Prothrombin Time 11.5 sec (9.8-11.6)
[2018-09-20 07:45] LABS: Baso # (Auto) 0.1 th/mm3 (0.0-0.2); Baso % (Auto) 0.7 % (0.0-2.0); Eos # (Auto) 0.1 th/mm3 (0.0-0.4); Eos % (Auto) 1.5 % (0.0-4.0); Hemoglobin 13.7 gm/dL (13.0-17.0); Lymph # (Auto) 0.7 th/mm3 (1.0-4.8); Lymph % (Auto) 10.3 % (9.0-44.0); Mean Corpuscular HGB Conc 33.3 % (32.0-36.0); Mean Corpuscular Hemoglobin 29.2 pg (27.0-34.0); Mean Corpuscular Volume 87.5 fL (80.0-100.0); Mean Platelet Volume 8.8 fL (7.0-11.0); Mono # (Auto) 0.9 th/mm3 (0.0-0.9); Mono % (Auto) 13.5 % (0.0-8.0); Platelet Count 175 th/mm3 (150-450); Red Blood Count 4.69 mil/mm3 (4.50-5.90); Red Cell Distribution Width 17.8 % (11.6-17.2); White Blood Count 6.8 th/mm3 (4.0-11.0)
[2018-09-20 07:46] LABS: Alanine Aminotransferase 20 U/L (12-78); Albumin 2.9 g/dL (3.4-5.0); Alkaline Phosphatase 70 U/L (45-117); Anion Gap 10 meq/L (5-15); Aspartate Aminotransferase 21 U/L (15-37); Blood Urea Nitrogen 41 mg/dL (7-18); Calcium 10.1 mg/dL (8.5-10.1); Carbon Dioxide 28.4 meq/L (21.0-32.0); Chloride 104 meq/L (98-107); Glomerular Filtration Rate 34 mL/min (>89); Glucose,Random 202 mg/dL (74-106); Magnesium 2.4 mg/dL (1.5-2.5); Phosphorus 3.2 mg/dL (2.5-4.9); Sodium 142 meq/L (136-145); Total Protein 8.1 g/dL (6.4-8.2)
[2018-09-20 08:07] LABS: Potassium 2.7 meq/L (3.5-5.1)
[2018-09-20] MEDS ORDERED: Potassium Chloride 25 MEQ Effervescent Tablet PO ONE ×2 (09:50→21:15)
--- NOTE | 2018-09-20 10:34 | P.PNIM ---
Subjective Interval history: 'i feel ok, I want to go home, you cant keep me here' Interval event--had loose bowel motions x6 last night, apparently was receiving lactulose. Physical Exam Vital signs: Last Vital Signs Temp 98 F 09/20/18 04:00 Pulse 51 L 09/20/18 04:00 Resp 17 09/20/18 04:00 BP 126/57 L 09/20/18 00:00 Pulse Ox 96 09/20/18 00:53 Intake & Output 09/18/18 09/19/18 09/20/18 09/21/18 06:59 06:59 06:59 06:59 Intake Total 980 / 980 1000 / 1000 700 / 700 Output Total 7425 / 7425 1600 / 1600 950 / 950 Balance -6445 / -6445 -600 / -600 -250 / -250 Weight 69.5 kg 69.1 kg Narrative: GENERAL: elderly man, not in distress, has physical restraints. HEENT:not pale,anicteric, dry oral mucous membranes. NECK: no JVD CARDIOVASCULAR: Regular rate and rhythm without murmurs, gallops, or rubs. RESPIRATORY: Breath sounds equal bilaterally. No accessory muscle use. GASTROINTESTINAL: Abdomen soft, non-tender, nondistended. MUSCULOSKELETAL: No cyanosis, or edema. Patient presently in restraints at forelimbs. SKIN: Warm and dry. NEURO:Awake and alert,oriented to self,not to place or time.No focal neurological deficits. Urinary Catheter Management Indwelling Urethral Catheter: Cath placed during this visit: yes Urethral indwelling: No Insertion date: 09/15/18 Insertion time: 17:24 Results Labs CBC & Chem 7: 09/21/18 05:23 09/21/18 05:23 Labs: Microbiology 09/16/18 22:40 Blood - Peripheral Aerobic Blood Culture - Preliminary No growth in 3 days 09/16/18 22:40 Blood - Peripheral Anaerobic Blood Culture - Preliminary No growth in 3 days 09/16/18 22:45 Blood - Peripheral Aerobic Blood Culture - Preliminary No growth in 3 days 09/16/18 22:45 Blood - Peripheral Anaerobic Blood Culture - Preliminary No growth in 3 days 09/15/18 12:25 Blood - Peripheral Aerobic Blood Culture - Preliminary No growth in 4 days 09/15/18 12:25 Blood - Peripheral Anaerobic Blood Culture - Preliminary No growth in 4 days 09/15/18 12:15 Blood - Peripheral Aerobic Blood Culture - Final Staphylococcus epidermidis 09/15/18 12:15 Blood - Peripheral Anaerobic Blood Culture - Preliminary No growth in 4 days Assessment and Plan (1) Delirium: Code(s): R41.0 - Disorientation, unspecified Status: Acute Plan 73yM with acute hypoxic and hypercarbic respiratory failure secondary to acute severe congestive heart failure exacerbation of unknown etiology.He was initially admitted to ICU, required intubation and mechanical ventilation,IV lasix drip. He clinically improved and was successively extubated. His ICU stay was complicated by delirium. He was transferred to the medical floor for further care. Acute problems: 1. Acute hypoxic and hypercarbic respiratory failure due to Severe acute pulmonary edema and suspect pneumonia-- resolved. s/p intubation and ventilation,successfully extubated.now on nasal canula. -He is on Vanc/Zosyn for pneumonia treatment, day 6/ today. -has been on diuresis as below. 2.Severe acute congestive heart failure exacerbation, preserved EF type. Type II NSTEMI secondary to demand ischemia. - lactate secondary to cardiogenic shock from CHF, resolved. - 2d echo 09/16: EF 55%, mild MR, mild PI, concentric LVH. -received IV lasix drip in ICU, transitioned to q6h IV Lasix. -patient clinically dry at present,had plenty of loose bowel motions overnight. Hold Lasix for now. 3. Acute metabolic encephalopathy--likely delirium due to severe medical illness /ICU stay. appreciate psych recs. Patient required physical restraints overnight. He remains oriented to self at this time,and he has intermittent agitation. monitor closely. frequent re-orientation and keep delirium precautions. 4. Diarrhea: noted overnight with loose bowel motions x6, however, he had been receiving lactulose which is now on hold.Monitor closely, if persistent, can check C.diff. 5. Hypokalemia--in the setting of IV diuresis and diarrhea. replete. 6.Acute kidney injury: BPH Urinary obstruction Prophylaxis: scds pepcid [facility] Progress Note: Quality VTE Deep Vein Thrombosis/Pulmonary Embolism Present on Admission: No
[2018-09-20] MEDS: Polyethylene Glycol 3350 17 GM Packet PO SCH (10:54)
[2018-09-20] MEDS: Famotidine PF Inj 20 MG/2 ML Vial IV.PUSH SCH ×2 (10:54→20:51)
[2018-09-20] MEDS: Senna/Docusate Sodium 8.6/50 MG Tablet PO SCH (10:55)
[2018-09-20] MEDS: Insulin NovoLOG Aspart Correctional Sugar Inj SQ SCH ×4 (10:57→20:52)
[2018-09-20] MEDS: Chlorhexidine 0.12% Oral Kit 15 ML UDC OROPHARYNG SCH ×2 (10:57→20:52)
[2018-09-20] MEDS ORDERED: Piperacil/Tazo 3.375 GM Premix 50 ML IV.SIG SCH (11:00)
[2018-09-20] MEDS: Piperacil/Tazo 3.375 GM Premix 50 ML IV.SIG SCH ×2 (17:19→22:16)
[2018-09-20 20:57] LABS: Potassium 2.9 meq/L (3.5-5.1)
[2018-09-21] MEDS: Oral Hygiene Kit OROPHARYNG SCH ×4 (00:39→16:23)
[2018-09-21] MEDS: Piperacil/Tazo 3.375 GM Premix 50 ML IV.SIG SCH ×4 (05:56→22:23)
[2018-09-21] MEDS: Heparin - SQ 10,000 UNITS/ML Vial SQ SCH ×3 (05:57→22:20)
[2018-09-21 06:55] LABS: Baso # (Auto) 0.1 th/mm3 (0.0-0.2); Eos # (Auto) 0.3 th/mm3 (0.0-0.4); Hematocrit 40.7 % (39.0-51.0); Hemoglobin 13.6 gm/dL (13.0-17.0); Lymph % (Auto) 14.6 % (9.0-44.0); Mean Corpuscular HGB Conc 33.5 % (32.0-36.0); Mean Corpuscular Hemoglobin 28.8 pg (27.0-34.0); Mono % (Auto) 13.9 % (0.0-8.0); Neut # (Auto) 4.7 th/mm3 (1.8-7.7); Neut % (Auto) 66.5 % (16.0-70.0); Platelet Count 184 th/mm3 (150-450); Red Blood Count 4.73 mil/mm3 (4.50-5.90); Red Cell Distribution Width 17.8 % (11.6-17.2); White Blood Count 7.1 th/mm3 (4.0-11.0)
[2018-09-21 07:18] LABS: INR 1.1 Ratio; Prothrombin Time 11.5 sec (9.8-11.6)
[2018-09-21 07:28] LABS: Phosphorus 2.6 mg/dL (2.5-4.9)
[2018-09-21 07:31] LABS: Calcium 9.6 mg/dL (8.5-10.1); Carbon Dioxide 26.1 meq/L (21.0-32.0); Magnesium 2.5 mg/dL (1.5-2.5); Potassium 3.6 meq/L (3.5-5.1)
[2018-09-21] MEDS: Famotidine PF Inj 20 MG/2 ML Vial IV.PUSH SCH ×2 (08:25→22:21)
[2018-09-21] MEDS: Insulin NovoLOG Aspart Correctional Sugar Inj SQ SCH ×4 (08:25→22:22)
[2018-09-21] MEDS: Chlorhexidine 0.12% Oral Kit 15 ML UDC OROPHARYNG SCH ×2 (08:26→22:22)
--- NOTE | 2018-09-21 13:44 | P.PNIM ---
Physical Exam Vital signs: Last Vital Signs Temp 97.6 F 09/21/18 08:00 Pulse 54 L 09/21/18 08:00 Resp 20 09/21/18 08:00 BP 148/65 H 09/21/18 08:00 Pulse Ox 98 09/21/18 08:00 Intake & Output 09/19/18 09/20/18 09/21/18 09/22/18 06:59 06:59 06:59 06:59 Intake Total 1000 / 1000 700 / 700 730 / 730 Output Total 1600 / 1600 950 / 950 Balance -600 / -600 -250 / -250 730 / 730 Weight 69.1 kg 64.9 kg Narrative: GENERAL: elderly man, not in distress, has physical restraints. HEENT:not pale,anicteric, dry oral mucous membranes. NECK: no JVD CARDIOVASCULAR: Regular rate and rhythm without murmurs, gallops, or rubs. RESPIRATORY: Breath sounds equal bilaterally. No accessory muscle use. GASTROINTESTINAL: Abdomen soft, non-tender, nondistended. MUSCULOSKELETAL: No cyanosis, or edema. Patient presently in restraints at forelimbs. SKIN: Warm and dry. NEURO:Awake and alert,oriented to self,not to place or time.No focal neurological deficits. Urinary Catheter Management Indwelling Urethral Catheter: Cath placed during this visit: yes Urethral indwelling: No Insertion date: 09/15/18 Insertion time: 17:24 Results Labs CBC & Chem 7: 09/21/18 05:23 09/21/18 05:23 Labs: Microbiology 09/16/18 22:40 Blood - Peripheral Aerobic Blood Culture - Final No growth in 5 days 09/16/18 22:40 Blood - Peripheral Anaerobic Blood Culture - Final No growth in 5 days 09/16/18 22:45 Blood - Peripheral Aerobic Blood Culture - Final No growth in 5 days 09/16/18 22:45 Blood - Peripheral Anaerobic Blood Culture - Final No growth in 5 days 09/15/18 12:25 Blood - Peripheral Aerobic Blood Culture - Final No growth in 5 days 09/15/18 12:25 Blood - Peripheral Anaerobic Blood Culture - Final No growth in 5 days 09/15/18 12:15 Blood - Peripheral Aerobic Blood Culture - Final Staphylococcus epidermidis 09/15/18 12:15 Blood - Peripheral Anaerobic Blood Culture - Final No growth in 5 days Assessment and Plan (1) Delirium: Code(s): R41.0 - Disorientation, unspecified Status: Acute Plan 73yM with acute hypoxic and hypercarbic respiratory failure secondary to acute severe congestive heart failure exacerbation of unknown etiology.He was initially admitted to ICU, required intubation and mechanical ventilation,IV lasix drip. He clinically improved and was successively extubated. His ICU stay was complicated by delirium. He was transferred to the medical floor for further care. Acute problems: 1. Acute hypoxic and hypercarbic respiratory failure due to Severe acute pulmonary edema and suspect pneumonia-- resolved. s/p intubation and ventilation,successfully extubated.now on nasal canula. -He is on Vanc/Zosyn for pneumonia treatment, day 6/ today. -has been on diuresis as below. 2.Severe acute congestive heart failure exacerbation, preserved EF type. Type II NSTEMI secondary to demand ischemia. - lactate secondary to cardiogenic shock from CHF, resolved. - 2d echo 09/16: EF 55%, mild MR, mild PI, concentric LVH. -received IV lasix drip in ICU, transitioned to q6h IV Lasix. -patient clinically dry at present,had plenty of loose bowel motions overnight. Hold Lasix for now. 3. Acute metabolic encephalopathy--likely delirium due to severe medical illness /ICU stay. appreciate psych recs. Patient required physical restraints overnight. He remains oriented to self at this time,and he has intermittent agitation. monitor closely. frequent re-orientation and keep delirium precautions. 4. Diarrhea: noted overnight with loose bowel motions x6, however, he had been receiving lactulose which is now on hold.Monitor closely, if persistent, can check C.diff. 5. Hypokalemia--in the setting of IV diuresis and diarrhea. replete. 6.Acute kidney injury: BPH Urinary obstruction Prophylaxis: scds pepcid [facility] Progress Note: Quality VTE Deep Vein Thrombosis/Pulmonary Embolism Present on Admission: No
[2018-09-22] MEDS: Oral Hygiene Kit OROPHARYNG SCH ×4 (01:38→17:37)
[2018-09-22] MEDS: Heparin - SQ 10,000 UNITS/ML Vial SQ SCH ×3 (05:06→21:12)
[2018-09-22] MEDS: Piperacil/Tazo 3.375 GM Premix 50 ML IV.SIG SCH ×4 (05:06→23:06)
[2018-09-22 08:50] LABS: Baso # (Auto) 0.1 th/mm3 (0.0-0.2); Baso % (Auto) 1.1 % (0.0-2.0); Eos # (Auto) 0.2 th/mm3 (0.0-0.4); Eos % (Auto) 3.3 % (0.0-4.0); Hematocrit 41.9 % (39.0-51.0); Hemoglobin 14.1 gm/dL (13.0-17.0); INR 1.1 Ratio; Lymph # (Auto) 0.9 th/mm3 (1.0-4.8); Lymph % (Auto) 14.4 % (9.0-44.0); Mean Corpuscular HGB Conc 33.8 % (32.0-36.0); Mean Corpuscular Hemoglobin 29.1 pg (27.0-34.0); Mean Corpuscular Volume 86.1 fL (80.0-100.0); Mean Platelet Volume 8.4 fL (7.0-11.0); Mono # (Auto) 0.7 th/mm3 (0.0-0.9); Mono % (Auto) 10.9 % (0.0-8.0); Neut # (Auto) 4.5 th/mm3 (1.8-7.7); Neut % (Auto) 70.3 % (16.0-70.0); Platelet Count 172 th/mm3 (150-450); Prothrombin Time 11.4 sec (9.8-11.6); Red Blood Count 4.86 mil/mm3 (4.50-5.90); Red Cell Distribution Width 17.9 % (11.6-17.2); White Blood Count 6.4 th/mm3 (4.0-11.0)
[2018-09-22 09:15] LABS: Calcium 9.5 mg/dL (8.5-10.1); Magnesium 2.4 mg/dL (1.5-2.5); Potassium 3.1 meq/L (3.5-5.1)
[2018-09-22 09:16] LABS: Phosphorus 3.2 mg/dL (2.5-4.9)
[2018-09-22] MEDS: Insulin NovoLOG Aspart Correctional Sugar Inj SQ SCH ×4 (09:16→21:18)
[2018-09-22] MEDS: Famotidine PF Inj 20 MG/2 ML Vial IV.PUSH SCH ×2 (09:16→21:11)
[2018-09-22] MEDS: Chlorhexidine 0.12% Oral Kit 15 ML UDC OROPHARYNG SCH ×2 (11:43→21:18)
--- NOTE | 2018-09-22 13:17 | P.PNIM ---
Subjective Interval history: patient remains intermittently agitated. he says his and tech want to kill him. Physical Exam Vital signs: Last Vital Signs Temp 98.2 F 09/22/18 08:00 Pulse 52 L 09/22/18 08:00 Resp 17 09/22/18 08:00 BP 139/64 09/22/18 08:00 Pulse Ox 99 09/22/18 08:00 Intake & Output 09/20/18 09/21/18 09/22/18 09/23/18 06:59 06:59 06:59 06:59 Intake Total 700 / 700 730 / 730 770 / 770 Output Total 950 / 950 300 / 300 Balance -250 / -250 730 / 730 470 / 470 Weight 69.1 kg 64.9 kg 64.7 kg Narrative: GENERAL: elderly man, not in distress, has physical restraints. HEENT:not pale,anicteric, dry oral mucous membranes. NECK: no JVD CARDIOVASCULAR: Regular rate and rhythm without murmurs, gallops, or rubs. RESPIRATORY: Breath sounds equal bilaterally. No accessory muscle use. GASTROINTESTINAL: Abdomen soft, non-tender, nondistended. MUSCULOSKELETAL: No cyanosis, or edema. Patient presently in restraints at forelimbs. SKIN: Warm and dry. NEURO:Awake and alert,oriented to self,not to place or time.No focal neurological deficits. Urinary Catheter Management Indwelling Urethral Catheter: Cath placed during this visit: yes Urethral indwelling: No Insertion date: 09/15/18 Insertion time: 17:24 Results Labs CBC & Chem 7: 09/22/18 08:20 09/22/18 18:08 Labs: Microbiology 09/16/18 22:40 Blood - Peripheral Aerobic Blood Culture - Final No growth in 5 days 09/16/18 22:40 Blood - Peripheral Anaerobic Blood Culture - Final No growth in 5 days 09/16/18 22:45 Blood - Peripheral Aerobic Blood Culture - Final No growth in 5 days 09/16/18 22:45 Blood - Peripheral Anaerobic Blood Culture - Final No growth in 5 days Assessment and Plan (1) Delirium: Code(s): R41.0 - Disorientation, unspecified Status: Acute Plan 73yM with acute hypoxic and hypercarbic respiratory failure secondary to acute severe congestive heart failure exacerbation of unknown etiology.He was initially admitted to ICU, required intubation and mechanical ventilation,IV lasix drip. He clinically improved and was successively extubated. His ICU stay was complicated by delirium. He was transferred to the medical floor for further care. Acute problems: 1. Acute hypoxic and hypercarbic respiratory failure due to Severe acute pulmonary edema and suspect pneumonia-- resolved. s/p intubation and ventilation,successfully extubated.now on nasal canula 2l/ min saturating well. Taper off oxygen. -He is on Vanc/Zosyn for pneumonia treatment to end 09/22. -has been on diuresis as below. 2.Severe acute congestive heart failure exacerbation, preserved EF type. Type II NSTEMI secondary to demand ischemia. - lactate secondary to cardiogenic shock from CHF, resolved. - 2d echo 09/16: EF 55%, mild MR, mild PI, concentric LVH. -received IV lasix drip in ICU, transitioned to q6h IV Lasix which is now on hold due to diarrhea and ISAEL.. -patient clinically dry at present 3. Acute metabolic encephalopathy--likely delirium due to severe medical illness /ICU stay. appreciate psych recs. Patient required physical restraints overnight. He remains oriented to self at this time,and he has intermittent agitation. monitor closely. frequent re-orientation and keep delirium precautions. 4. Diarrhea: noted 09/21 overnight with loose bowel motions x6, however, he had been receiving lactulose which is now on hold.Monitor closely. C.diff ordered 5. Hypokalemia--in the setting of IV diuresis and diarrhea. replete. 6.Acute kidney injury:in the setting of diuresis, creat trending down with above measures. Prophylaxis: scds pepcid [facility] Progress Note: Quality VTE Deep Vein Thrombosis/Pulmonary Embolism Present on Admission: No
[2018-09-22 19:09] LABS: Calcium 9.2 mg/dL (8.5-10.1); Carbon Dioxide 23.7 meq/L (21.0-32.0); Potassium 3.5 meq/L (3.5-5.1)
[2018-09-23] MEDS: Piperacil/Tazo 3.375 GM Premix 50 ML IV.SIG SCH ×3 (05:25→16:20)
[2018-09-23] MEDS: Heparin - SQ 10,000 UNITS/ML Vial SQ SCH ×3 (05:26→23:00)
[2018-09-23] MEDS: Oral Hygiene Kit OROPHARYNG SCH ×3 (06:23→15:48)
[2018-09-23 07:31] LABS: Calcium 9.3 mg/dL (8.5-10.1); Carbon Dioxide 24.2 meq/L (21.0-32.0); Potassium 3.1 meq/L (3.5-5.1)
[2018-09-23] MEDS: Chlorhexidine 0.12% Oral Kit 15 ML UDC OROPHARYNG SCH ×2 (09:14→23:01)
[2018-09-23] MEDS: Insulin NovoLOG Aspart Correctional Sugar Inj SQ SCH ×4 (09:15→23:02)
[2018-09-23] MEDS: Famotidine PF Inj 20 MG/2 ML Vial IV.PUSH SCH ×2 (09:16→23:00)
--- NOTE | 2018-09-23 19:42 | P.PNIM ---
Subjective Interval history: Patient is sitting upright in bed. He currently does not have any complaints. Physical Exam Vital signs: Vital Signs 09/22/18 20:00 09/23/18 00:00 09/23/18 04:00 Temperature 98.5 F 98.3 F 98.3 F Pulse Rate 61 54 L 59 L Respiratory Rate 18 16 Blood Pressure 152/71 H 147/67 H 148/60 H Pulse Oximetry 95 94 L 97 09/23/18 08:00 09/23/18 12:00 09/23/18 16:00 Temperature 97.9 F 97.4 F L Pulse Rate 54 L 54 L 59 L Respiratory Rate 18 16 Blood Pressure 169/76 H 152/65 H Pulse Oximetry 97 97 Intake & Output 09/23/18 09/23/18 09/24/18 06:59 18:59 06:59 Intake Total 100 / 100 100 / 100 Output Total 75 / 75 Balance 25 / 25 100 / 100 Weight 64.9 kg Intake: IV 100 / 100 100 / 100 Zosyn 3.375 GM Premix 50 ML @ 100 / 100 100 / 100 200 mls/hr IV.SIG Q6H RON Rx#: [id number] Oral 0 / 0 Output: Urine 75 / 75 Other: Date of Last Bowel Movement 09/22/18 # Bowel Movements 0 Narrative: General patient in no acute distress, he is alert and oriented x3. HEENT extraocular movements are intact, clear oropharyngeal mucosa Cardiovascular S1-S2 audible, RRR, no murmurs rubs or gallops Respiratory clear to auscultation bilaterally Abdomen soft, nontender, nondistended, normal bowel sounds Extremities no edema Neuro patient moves all 4 extremities, sensation is intact bilaterally - Urinary Catheter Management Indwelling Urethral Catheter Cath placed during this visit: yes Urethral indwelling: No Reason for continuing: Hourly intake/output Insertion date: 09/15/18 Insertion time: 17:24 Results - Labs CBC & Chem 7: 09/22/18 08:20 09/23/18 06:15 Laboratory Results - last 24 hr 09/22/18 09/22/18 09/23/18 21:00 21:11 06:15 Sodium 141 Potassium 3.1 L Chloride 106 Carbon Dioxide 24.2 Anion Gap 11 BUN 26 H Creatinine 1.27 Estimated GFR 56 L POC Glucose 211 H Random Glucose 160 H D Calcium 9.3 Magnesium Stl C.difficile DNA Amp Negative St C. diff Tox Epid 027 Negative 09/23/18 09/23/18 09/23/18 06:15 07:12 12:59 Sodium Potassium Chloride Carbon Dioxide Anion Gap BUN Creatinine Estimated GFR POC Glucose 176 H 205 H Random Glucose Calcium Magnesium 2.2 Stl C.difficile DNA Amp St C. diff Tox Epid 027 09/23/18 17:01 Sodium Potassium Chloride Carbon Dioxide Anion Gap BUN Creatinine Estimated GFR POC Glucose 242 H Random Glucose Calcium Magnesium Stl C.difficile DNA Amp St C. diff Tox Epid 027 Assessment and Plan - Assessment (1) Delirium Code(s): R41.0 - Disorientation, unspecified Status: Acute - Plan This patient is a 73-year-old male with a diagnosis CHF with preserved ejection fraction. The patient was admitted with acute hypoxic hypercapnic respiratory failure secondary to CHF exacerbation. Patient initially was admitted to the intensive care unit, was intubated and required mechanical ventilation. After initiation of treatment with IV Lasix patient was subsequently extubated successfully. 1. Acute hypoxic hypercapnic restaurant failure secondary to acute pulmonary edema secondary to CHF exacerbation with preserved ejection fraction. 2. Elevated troponin likely secondary to demand ischemia from CHF exacerbation 3. Acute kidney injury likely secondary to #1. 4. Hypokalemia 2D echocardiogram on 09/16/2018 showed ejection fraction of 55%. Patient initially was on Lasix drip in the intensive care unit. He was then transitioned to IV Lasix however due to acute kidney injury Lasix has been held. Patient serum creatinine continues to downtrend and is 1.2 as of today. Potassium will be given to the patient. Patient now appears euvolemic. Patient currently on room air. Case will be discussed with case management regarding the patient's discharge. 5. Diarrhea C. difficile is negative. Patient's diarrhea has improved. 6. Acute encephalopathy likely secondary to #1 Patient's encephalopathy has improved. 7. Hypertension Patient has elevated systolic blood pressure currently in the 140s-170s. Norvasc will be started. I will continue to follow patient's blood pressure and adjust his medication as needed. Heparin for DVT prophylaxis
[2018-09-23] MEDS ORDERED: amLODIPine 5 MG Tablet PO ONE (20:00)
[2018-09-24] MEDS: Oral Hygiene Kit OROPHARYNG SCH ×3 (00:15→17:38)
[2018-09-24] MEDS: Heparin - SQ 10,000 UNITS/ML Vial SQ SCH ×3 (06:12→23:15)
[2018-09-24 08:11] LABS: Calcium 9.4 mg/dL (8.5-10.1); Carbon Dioxide 22.9 meq/L (21.0-32.0); Magnesium 2.1 mg/dL (1.5-2.5); Potassium 3.6 meq/L (3.5-5.1)
[2018-09-24] MEDS: Famotidine PF Inj 20 MG/2 ML Vial IV.PUSH SCH ×2 (09:00→23:15)
[2018-09-24] MEDS: amLODIPine 5 MG Tablet PO SCH (09:00)
[2018-09-24] MEDS: Insulin NovoLOG Aspart Correctional Sugar Inj SQ SCH ×4 (09:01→23:14)
[2018-09-24] MEDS: Chlorhexidine 0.12% Oral Kit 15 ML UDC OROPHARYNG SCH ×2 (09:01→23:14)
--- NOTE | 2018-09-24 11:38 | P.PNIM ---
Subjective Interval history: Patient is in no acute distress today. No specific complaints from the patient. He says he is looking forward to getting better. Physical Exam Vital signs: Vital Signs 09/23/18 12:00 09/23/18 16:00 09/23/18 20:00 Temperature 97.4 F L 97.2 F L 97.8 F Pulse Rate 54 L 57 L 59 L Respiratory Rate 16 18 19 Blood Pressure 152/65 H 166/72 H 130/62 Pulse Oximetry 97 96 98 09/24/18 00:00 09/24/18 04:00 09/24/18 08:00 Temperature 97.6 F 98.3 F 98.4 F Pulse Rate 61 52 L 68 Respiratory Rate 20 20 18 Blood Pressure 152/66 H 137/61 135/60 Pulse Oximetry 97 97 99 Intake & Output 09/23/18 09/24/18 09/24/18 18:59 06:59 18:59 Intake Total 700 / 700 120 / 120 Output Total 100 / 100 Balance 600 / 600 120 / 120 Weight 67.7 kg Intake: IV 100 / 100 Zosyn 3.375 GM Premix 50 ML @ 100 / 100 200 mls/hr IV.SIG Q6H RON Rx#: [id number] Oral 600 / 600 120 / 120 Output: Urine 100 / 100 Other: # Voids 2 4 Date of Last Bowel Movement 09/23/18 # Bowel Movements 1 # Incontinent Bowel Movements 1 Narrative: General patient in no acute distress, he is alert and oriented x3. HEENT extraocular movements are intact, clear oropharyngeal mucosa Cardiovascular S1-S2 audible, RRR, no murmurs rubs or gallops Respiratory clear to auscultation bilaterally Abdomen soft, nontender, nondistended, normal bowel sounds Extremities no edema Neuro patient moves all 4 extremities, sensation is intact bilaterally - Urinary Catheter Management Indwelling Urethral Catheter Cath placed during this visit: yes Urethral indwelling: No Reason for continuing: Hourly intake/output Insertion date: 09/15/18 Insertion time: 17:24 Results - Labs CBC & Chem 7: 09/22/18 08:20 09/24/18 07:03 Laboratory Results - last 24 hr 09/23/18 09/23/18 09/23/18 12:59 17:01 21:44 Sodium Potassium Chloride Carbon Dioxide Anion Gap BUN Creatinine Estimated GFR POC Glucose 205 H 242 H 268 H Random Glucose Calcium Magnesium 09/24/18 09/24/18 07:03 08:07 Sodium 141 Potassium 3.6 Chloride 109 H Carbon Dioxide 22.9 Anion Gap 9 BUN 25 H Creatinine 1.32 H Estimated GFR 53 L POC Glucose 156 H Random Glucose 151 H Calcium 9.4 Magnesium 2.1 Assessment and Plan - Assessment (1) Delirium Code(s): R41.0 - Disorientation, unspecified Status: Acute - Plan This patient is a 73-year-old male with a diagnosis CHF with preserved ejection fraction. The patient was admitted with acute hypoxic hypercapnic respiratory failure secondary to CHF exacerbation. Patient initially was admitted to the intensive care unit, was intubated and required mechanical ventilation. After initiation of treatment with IV Lasix patient was subsequently extubated successfully. 1. Acute hypoxic hypercapnic respiratory failure secondary to acute pulmonary edema secondary to CHF exacerbation with preserved ejection fraction. 2. Elevated troponin likely secondary to demand ischemia from CHF exacerbation 3. Acute kidney injury likely secondary to #1. 4. Hypokalemia 2D echocardiogram on 09/16/2018 showed ejection fraction of 55%. Patient initially was on Lasix drip in the intensive care unit. He was then transitioned to IV Lasix however due to acute kidney injury Lasix has been held. Patient serum creatinine continues to downtrend and is 1.2 as of today. Potassium will be given to the patient. Patient now appears euvolemic. Patient currently on room air. Case will be discussed with case management regarding the patient's discharge. Patient currently receiving physical therapy and will benefit from physical therapy at a [facility] facility. Case discussed with case management regarding the patient's discharge planning. 5. Diarrhea C. difficile is negative. Patient's diarrhea has improved. 6. Acute encephalopathy likely secondary to #1 Patient's encephalopathy has improved. 7. Hypertension Patient has elevated systolic blood pressure currently in the 140s-170s. Norvasc was started yesterday. The patient's blood pressure is better controlled today. Continue current medication regimen. Heparin for DVT prophylaxis Continue pured diet with honey thickened liquids.
--- NOTE | 2018-09-24 17:08 | P.PNWCN ---
Wound Care Nurse Consult Description: Received consult for evaluation of possible pressure ulcer to sacral area. Communicated with: MAYA Aiken, Juanita Pickering and call placed to Doctor Paul for orders. Recommendation: Please cleanse wound to Sacral area with normal saline only and pat dry. Apply Santyl sal thickness to open wound bed. Apply thin layer of Calazime skin protectant paste, lining wound and cover wound with bordered gauze.Change daily. Encourage patient to avoid pressure to area, by laying from side to side and to avoid sitting for prolonged periods of time. Wound/Pressure Injury - Wound Sacrum Wound Staging: Unstageable Wound Assessment: Ongoing Wound Type: Pressure Injury Is This a Chronic Wound: No Requested from Provider a Wound Care Consult: Yes (Patient seen today by inpatient wound care ) Length (cm): 7 Width (cm): 4 Depth (cm): 0 (slough) Wound Bed Appearance: [place], Red, Yellow Wound Bed Appearance: Wound bed presents with ~60% pale, yellow, moist, adherent slough, ~30% red non granulation tissue and ~10% pink tissue Surrounding Tissue Appearance: Aynor Surrounding Tissue Temperature: Cool Drainage Description: Serosanguinous Drainage Amount: Scant Drainage Odor: No Odor Dressing Status: Open to Air Cleansing Solution: Saline Topical: Calazime skin protectant paste Wound Dressing Change Date: 09/24/18 Wound Margin Description: Poorly defined and open - Additional Information Patient seen on for evaluation of sacral pressure injury. Patient is sitting on side of bed upon writers arrival. Patient was reluctant to let medical underwriter view wound to buttock area, states" This is going to keep me here longer and I want to go home."Patient finally allowed medical underwriter to view wound with MAYA Pickering community relations assistant in room.Wound is noted beginning at the sacrum and extending to the gluteal cleft and bilateral inner buttocks. Wound presents with mixed etiology of moisture, pressure and friction. Wound bed presents with ~60% pale, yellow, moist, adherent slough, ~30% red non granulation tissue and ~10% pink tissue. Wound bed appears moist, with erythematous, denuded periwound. Wound margins are poorly defined and open. Due to the presence of ~60% necrotic tissue , wound is unstageable. Wound was cleansed with normal saline and patted dry. Applied a thin layer of Calazime skin protectant paste to periwound,lining wound and left wound open to air for now. RN to apply Santyl per recommendation when available.
[2018-09-24] MEDS: Collagenase Oint 30 GM Tube TOPICAL SCH (17:57)
[2018-09-25] MEDS: Oral Hygiene Kit OROPHARYNG SCH ×3 (00:25→13:50)
[2018-09-25] MEDS: Heparin - SQ 10,000 UNITS/ML Vial SQ SCH ×2 (05:46→13:58)
[2018-09-25] MEDS: Collagenase Oint 30 GM Tube TOPICAL SCH (08:59)
[2018-09-25] MEDS: Famotidine PF Inj 20 MG/2 ML Vial IV.PUSH SCH (08:59)
[2018-09-25] MEDS: amLODIPine 5 MG Tablet PO SCH (08:59)
[2018-09-25] MEDS: Insulin NovoLOG Aspart Correctional Sugar Inj SQ SCH ×2 (09:00→12:33)
[2018-09-25] MEDS: Chlorhexidine 0.12% Oral Kit 15 ML UDC OROPHARYNG SCH (09:00)
[2018-09-25 09:29] VITALS: BP 125/57; RESP 16; TEMP 97.9; O2SAT 97
[2018-09-25 14:15] VITALS: PULSE 63
--- NOTE | 2018-09-25 14:54 | P.DCO ---
- Physical Therapy Order: Evaluate and treat - Occupational Therapy Order: Evaluate and treat - Home Health Nursing Order: Medical education, Wound care and dressing changes, Nursing assessment with vital signs - Case Management Consult Case Management Consult-Home Health: Yes - Certification I have seen patient Drayl Zuniga on 09/25/18. My clinical findings support the need for the requested home health care services because: Medication compliance is questionable, Limited ability to care for self I certify that my clinical findings support that this patient is homebound because: Unsafe to leave home unassisted
--- NOTE | 2018-09-25 15:18 | P.DS ---
Date of admission: 09/15/18 12:17 Primary care physician: Physician 's [facility] Brief History from admission: 73yM with history of CHF s/p CABG for CAD presents with worsening shortness of breath. decompensated in the ER requiring intubation. BNP > 1400. lactate elevated. sbp elevated in the 190s. cxr suggestive of pulmonary edema. Patient was subsequently intubated and admitted to the intensive care unit. DS: Diagnosis - Discharge Diagnosis (1) Delirium Status: Acute DS: Medications - Discharge Medications Prescriptions: amlodipine [Norvasc] 5 mg PO DAILY #30 tab DS: Summary Hospital Course: 1. Acute hypoxic hypercapnic respiratory failure secondary to acute pulmonary edema secondary to CHF exacerbation with preserved ejection fraction. 2. Elevated troponin likely secondary to demand ischemia from CHF exacerbation 3. Acute kidney injury likely secondary to #1. This patient is a 73-year-old male with a diagnosis CHF with preserved ejection fraction. He also has a diagnosis of coronary artery disease status post CABG. The patient was admitted with acute hypoxic hypercapnic respiratory failure secondary to CHF exacerbation. Patient initially was admitted to the intensive care unit, was intubated and required mechanical ventilation. The patient's physical examination, chest x-ray imaging, elevated BNP were consistent with a CHF exacerbation. A 2D echocardiogram was done which showed an ejection fraction of 55%. After initiation of treatment with IV Lasix patient was subsequently extubated successfully. He also had an elevation in his serum troponin which was thought to be secondary to the acute CHF exacerbation. The patient is taking Coreg at home however his heart rate is currently in the 50s and it will be held on discharge. He is also taking lisinopril at home however his serum creatinine was slightly elevated and is currently at 1.3 and will also be held on discharge. Patient will likely benefit from both these medications and I recommend that he follow-up with his primary care doctor within 1 week. He should have a repeat renal panel and once his serum creatinine completely normalizes he can be restarted on lisinopril. If his heart rate is above 60 he should also be restarted on a beta-francis. The patient is currently on room air and is able to ablate without any difficulties. I evaluated the patient myself today and he is able to ambulate without a walker and does not want to be sent home with a walker. The patient refused to be evaluated by a department store salesperson while he was here in house. His was at bedside and also did not want him be evaluated by department store salesperson during this hospitalization. He says he will follow-up with his department store salesperson in [place] within 1 week. Patient follows up at the [place], his primary care doctor is Dr. Bravo who he will see early this next week. The importance of following up with his primary care doctor and department store salesperson were discussed with the patient and his in detail. He will be sent home with home health. 4. Acute encephalopathy secondary to #1 Patient's acute encephalopathy has resolved. He is currently alert and oriented x3 responding my questions and commands appropriately. 5. Hypertension Norvasc will be added to the patient's blood pressure medication regimen. Lisinopril and his beta-francis will be held on discharge because of a slightly elevated serum creatinine as well as bradycardia. Again I recommend that he follows up with his primary care doctor and once his serum creatinine normalizes and if his heart rate is above 60 he should be restarted on the JESSICA inhibitor as well as a beta-francis as he would likely benefit from them given his history of coronary artery disease and SD. These instructions were also given to the patient and his . 6. Ulcerations on the buttocks. Patient will be discharged with home health, after discharge. Recommendations from the wound care nurse are mentioned below. Please cleanse wound to Sacral area with normal saline only and pat dry. Apply Santyl sal thickness to open wound bed. Apply thin layer of Calazime skin protectant paste, lining wound and cover wound with bordered gauze.Change daily. Encourage patient to avoid pressure to area, by laying from side to side and to avoid sitting for prolonged periods of time. - Time Spent with Patient Total time spent providing and/or coordinating discharge services: Greater than 30 minutes - Quality: VTE Deep Vein Thrombosis/Pulmonary Embolism Present on Admission: No Exam Vital signs: Vital Signs 09/24/18 16:00 09/24/18 20:00 09/25/18 00:00 Temperature 97.3 F L 97.9 F 97.7 F Pulse Rate 67 52 L 60 Respiratory Rate 20 17 18 Blood Pressure 103/66 130/65 146/78 H Pulse Oximetry 96 94 L 98 09/25/18 04:00 09/25/18 08:00 09/25/18 12:00 Temperature 97.6 F 97.9 F Pulse Rate 51 L 54 L 63 Respiratory Rate 17 16 Blood Pressure 151/69 H 125/57 L Pulse Oximetry 98 97 Intake & Output 09/24/18 09/25/18 09/25/18 18:59 06:59 18:59 Intake Total 100 / 100 Output Total 100 / 100 Balance 0 / 0 Weight 68.6 kg Intake: Oral 100 / 100 Output: Urine 100 / 100 Narrative: General patient in no acute distress, he is alert and oriented x3. HEENT extraocular movements are intact, clear oropharyngeal mucosa Cardiovascular S1-S2 audible, RRR, no murmurs rubs or gallops Respiratory clear to auscultation bilaterally Abdomen soft, nontender, nondistended, normal bowel sounds Extremities no edema Skin abrasions noted to the medial buttocks bilaterally. Neuro patient moves all 4 extremities, sensation is intact bilaterally Results Procedures completed during hospitalization: Mechanical ventilation, intubation Labs on day of discharge: Labs from last 24 hours 09/25/18 09/25/18 09/24/18 11:51 08:13 21:26 POC Glucose 205 H 140 H 247 H 09/24/18 16:53 POC Glucose 290 H - Impressions ITS Impressions Chest CTA 09/15/18 11:59 CONCLUSION: 1. No pulmonary embolus. 2. Extensive bilateral pneumonia, densest in the left lower lobe. 3. Moderate to large right and small left pleural effusions. 4. Left ventricular and atrial enlargement. Previous coronary artery bypass graft operation. Chest X-Ray 09/16/18 05:00 CONCLUSION: Unchanged diffuse bilateral pulmonary infiltrates. Discharge Plan - Discharge Disposition Patient Disposition: W/Home Health Service - Discharge Condition Condition: Stable - Discharge Order Discharge Orders: Discharge Order (Routine); Ordered 09/25/18 Ordered By: Maritza Miller - Physicians Team Primary Care Provider: [facility] Attending Provider: Maritza Miller Other Providers: Jhonny Reyes MD ; [employer] ; [facility] ; [facility]
== END 2018-09-25 16:00 | disposition home health service (06) ==
LOC: NEPC 10:36 → NEDA 12:17 → HIMC 13:30 → N04 09-19 17:07
PROVIDERS: ADMIT Hospitalist; ATTEND Hospitalist